=== PATIENT | male | born 1945 | race Caucasian/White ===

== ENCOUNTER 2017-12-30 14:46 | Inpatient (IN) | payer MEDICARE ==
[~2017-12-30] VITALS: Ht 185.4 cm; Wt 79.5 kg
--- NOTE | ~2017-12-30 | OP ---
PATIENT NAME: JOSE E CARROLL MEDICAL RECORD: [id number] :41 LOCATION:D.M2 D.2119 ADMISSION DATE:12/30/17 SURGEON: ANALI FIELDS MD DATE OF OPERATION: 12/30/2017 PROCEDURES: 1. PTCA and stent to the left circumflex. 2. Left heart catheterization. 3. Selective coronary angiography. 4. Left ventriculogram. 5. Vein graft angiography. 6. MIRZA angiography. INDICATIONS: Acute anterolateral myocardial infarction, coronary artery disease, and acute coronary syndrome. PROCEDURE IN DETAIL: After informed consent was obtained and after a detailed explanation of risks, benefits as well as alternative therapies, the patient elected to proceed with angiogram and angioplasty. The right femoral area was prepped and draped in normal sterile fashion. Right femoral artery was cannulated via modified Seldinger technique with placement of 6-Paraguayan sheath. All catheters exchanged through this sheath. FINDINGS: Left ventriculogram was performed in standard 30-degree HALL view, reveals global hypokinesis, ejection fraction 35% to 40%. SELECTIVE CORONARY ANGIOGRAPHY: 1. Left main is with no significant angiographic disease. 2. Left anterior descending is totally occluded in mid vessel. 3. MIRZA to the distal LAD is widely patent. Distal LAD is widely patent. 4. Left circumflex has 90+ percent stenosis at the ostium. This is not grafted. 5. Right coronary is totally occluded. 6. Vein graft to the right coronary is totally occluded. PTCA STENT OF THE LEFT CIRCUMFLEX OSTIUM: The stent used was a 3.5 x 15-mm Integrity taken to 21 atmospheres. Result was 0% residual stenosis. OVERALL IMPRESSION: Successful percutaneous transluminal angioplasty stent of the left circumflex that is nongrafted going from 90% to 95% initial stenosis to 0% residual. TRANSINT:[id number] Voice Confirmation ID: [id number] DOCUMENT ID: [id number] ANALI FIELDS MD at 1059 CC: [id number] DICTATION DATE: 12/30/17 1534 POULTRY HATCHERY MANAGER: 12/30/17 2251 DIS IN 12/31/17 [address] [place] [address]
--- NOTE | ~2017-12-30 | MORECARE ---
CASE MANAGEMENT DISCHARGE SUMMARY PATIENT: JOSE E CARROLL UNIT: [id number] ADM DATE: 12/30/17 AGE: 72 : 43 SEX: M ROOM/BED: D.1271 AUTHOR: ANH,DOC PHYSICIAN: REFERRING PHYSICIAN: ISSAC ANNA MD DATE OF SERVICE: 12/31/17 Discharge Plan Patient Name: JOSE E CARROLL Facility: [facility]:[place] : 1945 Planned Disposition: Home Anticipated Discharge Date: 12/31/17 Discharge Date: Expected LOS: 1 Initial Reviewer: [email or web address] Initial Review Date: 12/31/2017 Generated: 12/31/17 12:34 pm Comments DCP- Discharge Planning Updated by [email or web address]: Aquiles Vaughn on 12/31/17 10:[address] Patient Name: JOSE E CARROLL Admission Status: ER Accout number: [id number] Admission Date: 12-30-2017 : 1945 Admission Diagnosis: Attending: ISSAC ANNA Current LOS: 1 Anticipated DC Date: 12-31-2017 Planned Disposition: Home Primary Insurance: [employer] CHOICE PPO MCR [facility] Discharge Planning Comments: CM MET WITH PT IN ROOM TO DISCUSS DISCHARGE PLANNING AND NEEDS. PT REPORTS LIVING AT HOME INDEPENDENTLY AND ALONE; PT REPORTS HAVING ASSISTANCE OF HIS NEIGHBOR IF NEEDED. PT HAS NO MEDICAL EQUIPMENT AND NO OUTSIDE SERVICES ASSISTING IN THE HOME. CM DISCUSSED AVAILABILITY OF HOME HEALTH, REHAB SERVICES AND MEDICAL EQUIPMENT. PT DENIES DISCHARGE NEEDS, REPORTS HIS NEIGHBOR WILL PICK HIM UP FOR DISCHARGE HOME. FNP NURSE NOTIFIED. Sight Mounter: Aquiles Vaughn DCPIA - Discharge Planning Initial Assessment Updated by [email or web address]: Aquiles Vaughn on 12/31/17 11:23 am * Is the patient Alert and Oriented? Yes * How many steps to enter\exit or inside your home? * PCP DR. SANDERS * Pharmacy [facility] [address] OR [facility] MAIL ORDER * Preadmission Environment Home Alone * ADLs Independent * Equipment None * Other Equipment NO MEDICAL EQUIPMENT PROVIDER PREFERENCE * List name and contact numbers for known caregivers / representatives who currently or will assist patient after discharge: IZA RODRIGUEZ, DAUGHTER, * Verbal permission to speak to the caregivers and representatives has been obtained from the patient. N/A * Community resources currently utilized None * Please name any agencies selected above. NONE * Additional services required to return to the preadmission environment? No * Can the patient safely return to the preadmission environment? Yes * Has this patient been hospitalized within the prior 30 days at any hospital? No Last DP export: 12/31/17 10:28 a Patient Name: JOSE E CARROLL Page 24127 at 1135 All edits/amendments must be made on the electronic document DICTATION DATE: 12/31/17 113 PURCHASE ANALYST: MOUNA 12/31/17 1134 RPT#: [id number] IN DATE: STATUS: ADM IN [facility] [address] [place] [address] END OF REPORT
--- NOTE | ~2017-12-30 | MORECARE ---
CASE MANAGEMENT DISCHARGE SUMMARY PATIENT: JOSE E CARROLL UNIT: [id number] ADM DATE: 12/30/17 AGE: 72 : 43 SEX: M ROOM/BED: D.2119 AUTHOR: COURTNEY KAMARA PHYSICIAN: REFERRING PHYSICIAN: ISSAC ANNA MD DATE OF SERVICE: 12/31/17 Discharge Plan Patient Name: JOSE E CARROLL Facility: [facility]:[place] : 1945 Planned Disposition: Home Anticipated Discharge Date: 12/31/17 Discharge Date: Expected LOS: 1 Initial Reviewer: [email or web address] Initial Review Date: 12/31/2017 Generated: 12/31/17 12:28 pm DCPIA - Discharge Planning Initial Assessment Updated by [email or web address]: Aquiles Vaughn on 12/31/17 11:23 am * Is the patient Alert and Oriented? Yes * How many steps to enter\exit or inside your home? * PCP DR. SANDERS * Pharmacy [facility] OR [facility] MAIL ORDER * Preadmission Environment Home Alone * ADLs Independent * Equipment None * Other Equipment NO MEDICAL EQUIPMENT PROVIDER PREFERENCE * List name and contact numbers for known caregivers / representatives who currently or will assist patient after discharge: IZA RODRIGUEZ, DAUGHTER, * Verbal permission to speak to the caregivers and representatives has been obtained from the patient. N/A * Community resources currently utilized None * Please name any agencies selected above. NONE * Additional services required to return to the preadmission environment? No * Can the patient safely return to the preadmission environment? Yes * Has this patient been hospitalized within the prior 30 days at any hospital? No Patient Name: JOSE E CARROLL Page 15375 at 1128 All edits/amendments must be made on the electronic document DICTATION DATE: 12/31/171126 LEGAL ACTIVITY ADJUDICATOR: MOUNA 12/31/171126 RPT#: [id number] DC DATE: STATUS: ADM IN [facility] [address] [place] [address] END OF REPORT
--- NOTE | ~2017-12-30 | HEMODYNAMI ---
PATIENT:JOSE E CARROLL MEDICAL RECORD: [id number] : 41 LOCATION:JEFF ADMISSION DATE: 12/30/17 Generatedon:12/30/201715:33 Patient name: JOSE E CARROLL Patient #: [id number] SSN: : 1945 Date of study: 12/30/2017 Page: Of Hemodynamic Procedure Report Patient Data Patient Demographics Procedure consent was obtained First Name: JOSE E Gender: Male Last Name: CARLY : 1945 Patient #: [id number] Age: 72 year(s) Race: Unknown Additional ID: [id number] Contact details [address]: [address] [place] [address] State: [place] City: [place] Zip code: [address] Admission Admission Data Admission Date: 12/30/2017 Admission Time: 14:46 Procedure Procedure Types Cath Procedure Diagnostic Procedure LHC LHC w/Coronaries Sedation Charges Moderate Sedation up to 15 minutes PCI Procedure AMI/SVG/INTERMEDIATE PROJECT MANAGER PTCA or Stent AMI-BMS/DILLON Initial Peripheral Cath Diagnostic Procedure Telecommunications Equipment Installer Peripheral Procedures Xzrzl-Dofnunb-Dou-Off Procedure Description Procedure Date Procedure Date: 12/30/2017 Procedure Start Time: 15:05 Procedure End Time: 15:26 Procedure Staff Name Function Carlos Eduardo Drew MD Performing Physician Amanda Tate RT Monitor Tramaine Raymond RT Scrub Shar Odell RN Nurse Procedure Data Cath Procedure Fluoroscopy Diagnostic fluoroscopy Total fluoroscopy Time: 4.6 time: 4.6 min min Diagnostic fluoroscopy Total fluoroscopy dose: 957 dose: 957 mGy mGy Contrast Material Contrast Material Type Amount (ml) Isovue 300 164 Entry Location Entry Primary Successful Side Size Upsize Upsize Entry Closure Succes sful Closure Location (Fr) 1 (Fr) 2 (Fr) Remarks Device Remarks Femoral Right 6 Fr 6 Fr 6 Fr Exoseal artery Short Long Short Estimated blood loss: 5 ml Diagnostic catheters Device Type Used For End Catheter Placement MULTIPACK Pigtail 5 Fr LV Angiography catheter MULTIPACK Pigtail 5 Fr LV Angiography catheter MULTIPACK JL 4.0 5Fr Left Coronary catheter Angiography MULTIPACK 3DRC 5Fr Right Coronary catheter Angiography DIAGNOSTIC AR2 MOD 5 Fr Multi-vessel catheter ([id number]) Angiography Procedure Complications No complications Procedure Medications Medication Administration Route Dosage 0.9% NaCl I.V. 100 ml/hr Oxygen etCO2 Nasal cannula 2 l/min Heparin Flush Bag added to field 2 bags (1000units/500ml NS) Lidocaine 2% added to field 20 Versed I.V. 1 mg Fentanyl I.V. 50 mcg Amiodarone Loading I.V. drip 150 mg Dose (150mg/100ml D5W) Versed I.V. 1 mg Heparin Bolus I.V. 4000 units Integrilin (Bolus I.V. 7.3 ml 2mg/ml) Integrilin (Bolus wasted 2.7 ml 2mg/ml) Plavix P.O. 600 mg Hemodynamics Rest Heart Rate: 92 (bpm) Pressure Samples Time Site Value (mmHg) Purpose Heart Use Rate(bpm) 15:10 LV 21/20,17 Snapshot 70 Snapshots Pre Cath Intra NCS Post Cath Vital Signs Time Heart Resp SPO2 etCO2 NIBP (mmHg) Rhythm Pain Sedation Rate (ipm) (%) (mmHg) Status Level (bpm) 14:59:47 118 13 95 0 181/121(154) NSR 0 (11) 10(A) , No pain 15:04:03 95 21 96 0 162/119(138) NSR 0 (11) 10(A) , No pain 15:08:13 95 22 98 18.7 169/120(143) NSR 0 (11) 10(A) , No pain 15:12:24 89 16 98 29.2 158/117(130) NSR 0 (11) 10(A) , No pain 15:16:34 106 13 97 28.4 150/103(134) NSR 0 (11) 10(A) , No pain 15:20:42 80 15 98 32.9 162/107(139) NSR 0 (11) 10(A) , No pain 15:24:54 85 17 99 33.7 172/107(142) NSR 0 (11) 10(A) , No pain Medications Time Medication Route Dose Verified Delivered Reason Notes Effectiveness by by 15:09:17 0.9% NaCl I.V. 100 Shar Myles Per physician ml/hr Cass Odell RN RN 15:09:29 Oxygen etCO2 2 Shar Shar Per physician Nasal l/min Cass Odell cannula RN RN 15:09:40 Heparin Flush added 2 Shar Shar used for Bag to bags Cass Odell procedure (1000units/500ml field RN RN NS) 15:09:50 Lidocaine 2% added 20ml Shar Shar for local to vial Cass Odell anesthetic field RN RN 15:09:59 Versed I.V. 1 mg Shar Shar for sedation Cass Odell RN RN 15:10:07 Fentanyl I.V. 50 Shar Shar for sedation mcg Cass Odell RN RN 15:10:24 Amiodarone I.V. 150 Shar Shar for arrhythmia Loading Dose drip mg Cass Odell (150mg/100ml RN RN D5W) 15:13:14 Versed I.V. 1 mg Shar Shar for sedation Cass Odell RN RN 15:19:28 Heparin Bolus I.V. 4000 Shar Shar for units Cass Odell anticoagulation RN RN 15:19:43 Integrilin I.V. 7.3 Shar Shar for (Bolus 2mg/ml) ml Cass Odell antiplatelet RN RN therapy 15:19:54 Integrilin wasted 2.7 Shar Shar to sharp's (Bolus 2mg/ml) ml Cass Odell RN RN 15:24:45 Plavix P.O. 600 Shar Shar for mg Cass Odell antiplatelet RN RN therapy Procedure Log Time Note 14:52:43 Tramaine Raymond RT(R) sent for patient. Start room use. 14:52:44 Time tracking: Regular hours (M-F 7:00 - 5:00) 14:52:47 Plan of Care:Hemodynamics will remain stable., Cardiac rhythm will remain stable., Comfort level will be maintained., Respiratory function will remain adequate., Patient/ family verbilizes understanding of procedure., Procedure tolerated without complication., Recovers from procedure without complications.. 14:55:20 Patient received from ED to CCL 2 Alert and oriented. Tansferred to table in Supine position. 14:55:21 Warm blankets applied, and todd hugger turned on for patient comfort. 14:55:21 Correct patient and procedure confirmed by team. 14:55:23 Signed procedure consent form obtained from patient. 14:55:23 ECG and BP/O2 sat monitors applied to patient. 14:58:24 Vital chart was started 15:00:00 Baseline sample Acquired. 15:00:00 Full Disclosure recording started 15:00:04 H&P Date Dictated: 12/30/2017 ER History on chart.. 15:00:05 Pre-procedure instructions explained to patient. 15:00:05 Pre-op teaching completed and patient verbalized understanding. 15:00:08 Family unavailable. 15:00:10 Patient NPO since Breakfast. 15:00:11 Is the patient allergic to Iodine/contrast media? No. 15:00:12 Was the patient premedicated? No 15:00:14 Is patient on blood thinner?Yes 15:00:17 ACC The patient was administered the following blood thiners within the last 24 hours: ACCPlavix 15:00:19 Patient diabetic? No. 15:00:21 Previous problem with sedation/anesthesia? No ? 15:00:23 Snore? Yes 15:00:24 Sleep apnea? No 15:00:25 Deviated septum? No 15:00:25 Opens mouth fully? Yes 15:00:26 Sticks out tongue? Yes 15:00:27 Airway obstruction? No ? 15:00:29 Dentures? No ? 15:00:33 Pre procedure: right dorsailis pedis pulse 2+ Normal; easily identifiable; not easily obliterated 15:00:34 Pre procedure: left dorsailis pedis pulse 2+ Normal; easily identifiable; not easily obliterated 15:00:36 Patient pain scale 0/10 ?. 15:00:42 IV patent on arrival in right forearm, left forearm with 0.9% NaCl at O. 15:00:45 Lab results completed and on chart. 15:00:48 Right groin area was prepped with chlora-prep and draped in sterile fashion 15:00:49 Alarms reviewed by Catrina Jefferson. 15:00:49 Sharps counted by scrub and verified by [email or web address]. 15:00:51 Physician arrived 15:00:51 --------ALL STOP TIME OUT------ 15:00:52 Final Timeout: patient, procedure, and site verified with staff and physician. All members of the team are in agreement. 15:00:53 Right groin site verified by team. 15:01:00 Physical assessment completed. ASA score P 3 - A patient with severe systemic disease as per Carlos Eduardo Drew MD. 15:01:04 Sedation plan: IV Moderate Sedation Medication:Versed, Fentanyl 15:01:07 Use device set Femoral Dx 15:01:08 ACIST Syringe (52588) opened to sterile field. 15:01:09 Bag Decanter (2002S) opened to sterile field. 15:01:09 Medline Cath Pack ([id number]) opened to sterile field. 15:01:09 DIAGNOSTIC WIRE .035 260cm J wire (087721) opened to sterile field. 15:01:16 ACIST Hand Control (40880) opened to sterile field. 15:01:17 ACIST Manifold (53221) opened to sterile field. 15:01:17 DIAGNOSTIC Multipack 5Fr catheter set ([id number]) opened to sterile field. 15:01:18 Tegaderm 4 x 4 (1626W) opened to sterile field. 15:05:42 Procedure started. 15:05:45 Local anesthetic to right femoral artery with Lidocaine 2% by Carlos Eduardo Drew MD.INITIAL ACCESS ONLY 15:05:54 A 6 Fr Short sheath was inserted into the Right Femoral artery 15:06:40 SHEATH 6FR [place] (KKL458) opened to sterile field. 15:06:41 CHOICE PT Extra Support 182cm wire ([id number]) opened to sterile field. 15:06:43 INFLATOR Merit BasixCompak (TE5206) opened to sterile field. 15:08:48 A MULTIPACK Pigtail 5 Fr catheter was advanced over the wire and used for LV Angiography. 15:08:56 Abdominal angiogram w/ runoff was performed. 15:09:01 Catheter removed. 15:09:14 SHEATH 6FR ARROW 45cm (CL-60456) opened to sterile field. 15:09:17 0.9% NaCl 100 ml/hr I.V. was administered by Shar Odell RN; Per physician; 15:09:24 Sheath upsized to a 6 Fr Long. 15:09:29 Oxygen 2 l/min etCO2 Nasal cannula was administered by Shar Lorigan RN; Per physician; 15:09:40 Heparin Flush Bag (1000units/500ml NS) 2 bags added to field was administered by Shar Odell RN; used for procedure; 15::50 Lidocaine 2% 20ml vial added to field was administered by Shar Odell RN; for local anesthetic; 15:09:59 Versed 1 mg I.V. was administered by Shar Odell RN; for sedation; 15:10:07 Fentanyl 50 mcg I.V. was administered by Shar Odell RN; for sedation; 15:10:24 Amiodarone Loading Dose (150mg/100ml D5W) 150 mg I.V. drip was administered by Shar Odell RN; for arrhythmia; 15:10:41 A MULTIPACK Pigtail 5 Fr catheter was advanced over the wire and used for LV Angiography. 15:11:02 LV hemodynamics recorded. 15:11:03 LV gram done using HALL 15:11:06 Injector settings: Ml/sec: 5, Volume: 15, 15:11:11 EF : 35 % 15:11:17 Catheter removed. 15:11:21 A MULTIPACK JL 4.0 5Fr catheter was advanced over the wire and used for Left Coronary Angiography. 15:12:00 LCA angiography performed. 15:12:03 Injector settings: Ml/sec: 3, Volume: 6, 15:13:14 Versed 1 mg I.V. was administered by Shar Odell RN; for sedation; 15:13:54 Catheter removed. 15:13:58 A MULTIPACK 3DRC 5Fr catheter was advanced over the wire and used for Right Coronary Angiography. 15:14:42 MIRZA angiography performed. 15:14:44 RCA angiography performed. 15:14:51 Injector settings: Ml/sec: 3, Volume: 6, 15:14:52 Catheter removed. 15:15:18 A DIAGNOSTIC AR2 MOD 5 Fr catheter ([id number]) was advanced over the wire and used for Multi-vessel Angiography. 15:16:00 SVG to RCA occluded. 15:16:31 Catheter removed. 15:16:33 Proceeding to intervention. 15:16:55 GUIDE 6FR EBU 4.5 catheter ([id number]) opened to sterile field. 15:17:20 6 Fr EBU 4.5 guide catheter was inserted over the wire 15:17:24 CHOICE PT wire advanced. 15:18:09 Wire advanced across lesion. 15:19:28 Heparin Bolus 4000 units I.V. was administered by Shar Odell RN; for anticoagulation; 15::43 Integrilin (Bolus 2mg/ml) 7.3 ml I.V. was administered by Shar Odell RN; for antiplatelet therapy; 15:19:54 Integrilin (Bolus 2mg/ml) 2.7 ml wasted was administered by Shar Odell RN; to sharp's; 15:20:34 Inflate balloon Inflation number: 1 A INTEGRITY RX 3.5 x 15 stent ([id number]) was prepped and advanced across the Prox CX, then inflated to 19 MARTY for 0:10 (min:sec). 15:21:18 Stent catheter was removed intact over wire. 15:21:18 Wire removed. 15:21:19 Guide catheter removed. 15:21:28 Sheath upsized to a 6 Fr Short. 15:21:36 EXOSEAL 6Fr (EX600) opened to sterile field. 15:21:45 Sheath removed intact; hemostasis achieved with Exoseal to the Right Femoral artery. 15:21:46 Procedure ended.(Physican Out) 15:24:43 Fluoroscopy time 04.60 minutes. 15:24:45 Plavix 600 mg P.O. was administered by Shar Odell RN; for antiplatelet therapy; 15:24:47 Fluoroscopy dose: 957 mGy 15:24:47 Flurop Dose total: 957 15:24:50 Contrast amount:Isovue 300 164ml. 15:25:13 Sharpmandeep counted by scrub and verified by R.N. 15:25:19 Insertion/operative site no bleeding no hematoma. 15:25:21 Post-op/insertion site Right Femoral artery dressed using a 4 x 4 and Tegaderm. 15:25:24 Post right femoral artery:stable 15:25:25 Post Procedure Pulses reassessed and unchanged 15:25:28 Post procedure rhythm: unchanged. 15:25:30 Estimated blood loss: 5 ml 15:25:32 Post procedure instruction explained to patient.Patient verbalizes understanding. 15:25:33 Patient needs reinforcement of post procedure teaching. 15:26:07 Procedure type changed to Cath procedure, Diagnostic procedure, LHC, LHC w/Coronaries, Sedation Charges, Moderate Sedation up to 15 minutes, PCI procedure, AMI/SVG/INTERMEDIATE PROJECT MANAGER PTCA or Stent, AMI-BMS/DILLON Initial, Peripheral Cath Diagnostic Procedure, Telecommunications Equipment Installer Peripheral Procedures, Eizao-Plcifgd-Hkn-Off 15:26:18 Procedure and supply charges have been captured, reviewed, submitted and are correct. 15:26:22 Procedure Complication : No complications 15:26:24 Vital chart was stopped 15::24 See physician's report for complete and final results. 15::27 Report given to [facility]. 15::30 Patient transfered to [facility] with Stretcher. 15::37 Procedure ended. 15::37 Full Disclosure recording stopped 15:26:53 ACC-PCI Only Patient was given prescriptions, or instructed by Carlos Eduardo Drew MD to start/continue the following medications upon discharge: Plavix 15:26:55 End room use (Document Last) Intervention Summary Intervention Notes Time ActionType Lesion and Equipment Action# Pressure Duration Attributes Used 15:20:34 Inflate Prox CX INTEGRITY RX 1 19 00:10 balloon 3.5 x 15 stent ([id number]) Device Usage Item Name Manufacture Quantity Catalog Number Hospital Part Current Mini mal Lot# / Charge Number Stock Stock Serial# Code ACIST Acist 1 46077 275822 303886 001397 20 Syringe Medical (78784) Systems Inc Bag Decanter Microtek 1 2001S 049691 49888 462342 5 () Medical Inc. Medline Cath Medline 1 [id number] 274059 60752 152000 5 Pack ([id number]) DIAGNOSTIC St Ty 1 802455 657891 197127 128987 30 WIRE .035 260cm J wire (787773) ACIST Hand Acist 1 50533 386293 838576 167605 5 Control Medical (02453) Systems Inc ACIST Acist 1 36007 106982 516812 651835 5 Manifold Medical (36880) Systems Inc DIAGNOSTIC Cardinal 1 GM3988 190771 56179 142031 30 [employer] Health 5Fr catheter set (MD1068) Tegaderm 4 x 3M 1 1626W 976023 694579 144750 5 4 (1626W) SHEATH 6FR Terumo 1 BIW769 411460 954820 999708 40 [place] (SGC422) CHOICE PT [place] 1 [id number] 259263 082836 098601 5 Extra Scientific Support 182cm wire ([id number]) INFLATOR Merit 1 AW9058 715047 883808 816491 15 [facility] Medical BasixCompak (DI0590) MULTIPACK Cardinal 1 274694 5 Pigtail 5 Fr Health catheter SHEATH 6FR Teleflex 1 CL-31500 950432 420716 310974 5 ARROW 45cm (CL-31633) MULTIPACK JL Cardinal 1 235319 5 4.0 5Fr Health catheter MULTIPACK Cardinal 1 604614 5 3DRC 5Fr Health catheter DIAGNOSTIC Cardinal 1 [id number] 422062 287006 537627 20 AR2 MOD 5 Fr Health catheter (680444O) GUIDE 6FR Medtronic 1 [id number] 966729 53995 796547 0 EBU 4.5 catheter ([id number]) INTEGRITY RX Medtronic 1 [id number] 220108 706749 604991 5 [id number] 3.5 x 15 stent ([id number]) EXOSEAL 6Fr Cardinal 1 EX600 336469 996614 827452 10 (EX600) Health Signature Audit [place] Stage Time Signature Unsigned Intra-Procedure 12/30/2017 Amanda Tate 3:33:34 PM RT(R) Signatures Monitor : Amanda Tate RT Signature : Date : Time : [id number] [place] [address]
--- NOTE | ~2017-12-30 | OP ---
PATIENT NAME: JOSE E CARROLL MEDICAL RECORD: [id number] :41 LOCATION:D.M2 D.2119 ADMISSION DATE:12/30/17 SURGEON: ANALI FIELDS MD DATE OF OPERATION: 12/30/2017 PROCEDURES: 1. Aortofemoral runoff. 2. Abdominal aortography. INDICATIONS: Difficulty obtaining access for coronary intervention, peripheral vascular disease. PROCEDURE IN DETAIL: After informed consent was obtained and after a detailed description of the risks, benefits as well as alternative therapies, the patient elected to proceed with angiogram and aortofemoral runoff. The catheter was advanced for abdominal aortography, it was pulled down for aortofemoral runoff. OVERALL FINDINGS: Abdominal aorta reveals very tortuous calcified abdominal aorta but no dissection, aneurysm formation. No flow-limiting stenosis. RIGHT LEG: A. Iliac: The common internal and external iliacs are heavily calcified, moderately diffusely diseased, very tortuous. B. Femoral System: Deep femoral is widely patent. Superficial femoral has moderately to severely diffusely diseased throughout its entire course. C. Popliteal And Infrapopliteal Vessels: The popliteal is patent. Infrapopliteal vessels are severely diffusely diseased, but there is somewhat of 2-vessel runoff through the peroneal and posterior tibial. LEFT LEG: A. Iliac: The common internal and external iliacs are heavily calcified, moderately diffusely diseased, very tortuous. B. Femoral System: Deep femoral is widely patent. Superficial femoral has moderately to severely diffusely diseased throughout its entire course. C. Popliteal And Infrapopliteal Vessels: The popliteal is patent. Infrapopliteal vessels are severely diffusely diseased, but there is somewhat of 2-vessel runoff through the peroneal and posterior tibial. He kept a stent except for the right leg but to the foot. OVERALL IMPRESSION: Extreme tortuosity of the iliacs, this is the difficulty obtaining access for acute coronary intervention. However, no flow-limiting stenosis is present. Severe diffuse disease of the SFA and infrapopliteal vessels that are not amenable to transcatheter revascularization. TRANSINT:[id number] Voice Confirmation ID: [id number] DOCUMENT ID: [id number] OPERATIVE REPORT [id number] CARLYEMILYJOSE EANALI GONZALEZ MD at 1059 CC: [id number] DICTATION DATE: 12/30/17 1534 LOAD DROPPER: 12/30/17 2254 DIS IN 12/31/17 [facility] [address] [place] [address]
--- NOTE | ~2017-12-30 | CN ---
PATIENT NAME:JOSE E CARROLL MEDICAL RECORD: [id number] : 41 LOCATION:D.M2 D.2119 ADMIT DATE: 12/30/17 ACCOUNT: [id number] CONSULTING PHYSICIAN: ANALI FIELDS MD REFERRING PHYSICIAN: ISSAC ANNA MD DATE OF CONSULTATION: 12/30/2017 DIAGNOSES: 1. Acute anterolateral myocardial infarction. 2. New-onset atrial fibrillation. 3. Coronary artery disease. 4. Previous coronary artery bypass graft surgery. 5. Hypertension. HISTORY: This is a gentleman with past history of coronary artery disease and bypass surgery approximately 10 years ago, who presents with acute onset of chest pain. His EKG is compatible with an acute anterolateral myocardial infarction. While en route, he went into wide complex tachycardia, was given amiodarone. He is now in a narrow complex atrial fibrillation with ventricular response of approximately 100. He is pain free at this time. His STs are better. PHYSICAL EXAMINATION: GENERAL APPEARANCE: Well-nourished, well-developed, appears stated age. Level of distress, comfortable. PSYCHIATRIC: Mental status, alert, normal affect. Orientation, oriented to time, place and person. EYES: Lids and conjunctiva, noninjected. No discharge, no pallor. ENT: Lips, teeth, gums, normal dentition. Oropharynx, no cyanosis, no pallor. NECK: Carotid arteries, bilateral normal upstroke, no bruits, no thrills. JUGULAR VEINS: No jugular venous pressure or distention. CERVICAL LYMPH NODES: Nontender, nonenlarged. THYROID: Not enlarged. Nontender. No nodules. LUNGS: Respiratory effort, unlabored. CHEST: Normal curvature. No thoracic deformity. No chest wall tenderness. Percussion, resonant. Auscultation, clear. No wheezes, no rales, no rhonchi. CARDIOVASCULAR: Precordial exam, nondisplaced. No heaves or pericardial thrills. Rate and rhythm, regular. Heart sounds, normal S1, normal S2. No S3, no gallop, no rub. Systolic murmur, not heard. Diastolic murmur, not heard. EXTREMITIES: No cyanosis, no edema. Peripheral pulses, full and equal in all extremities, except as noted. No bruits appreciated. ABDOMEN: Soft, nondistended. Normal aorta. No bruit. Nontender. No masses. Liver, nontender, no hepatomegaly. Spleen, nontender, no splenomegaly. MUSCULOSKELETAL: No joint tenderness. No joint swelling. No erythema. NEUROLOGICAL: Normal gait, normal strength, normal tone. SKIN: Warm and dry. OVERALL IMPRESSION: Acute myocardial infarction with life-threatening rhythm disturbances. We will proceed with emergent coronary angiography. Further care depends upon findings of the angiography. TRANSINT:[id number] Voice Confirmation ID: [id number] DOCUMENT ID: [id number] CONSULT REPORT [id number] JOSE E CARROLL, ANALI PAREDES at 1059 CC: [id number] DICTATION DATE: 12/30/17 1526 PRE PRESS MANAGER: 12/30/17 1835 DIS IN 12/31/17 [id number] [place] [address]
[~2017-12-30 14:46] MED LIST: ALTOPREV40 MG PO; BAYER CHEWABLE81 MG PO; MOBIC7.5 MG PO; PAXIL20 MG PO; PLAVIX75 MG PO; SYNTHROID100 MCG PO; VASOTEC20 MG PO; XANAX1 MG PO
[2017-12-30 15:42] LABS: BASOPHILS 0.2 % (0-2); EOSINOPHILS 0.7 % (0-7); HEMATOCRIT 36.9 % (42.0-54.0); HEMOGLOBIN 13.1 g/dL (13.5-17.5); IMMATURE GRANULOCYTES 0.3 % (0-5); LYMPHOCYTES 13.5 % (15-50); MCHC 35.5 g/dL (31.0-37.0); MCV 90.2 fL (80.0-100.0); MEAN PLATELET VOLUME 10.8 fL (7.4-10.4); MONOCYTES 9.4 % (2-11); NEUTROPHILS 75.9 % (40-80); RBC 4.09 10x6/uL (4.20-6.10); WBC 8.8 10x3/uL (4.8-10.8)
[2017-12-30 15:54] LABS: PLATELET COUNT 207 10x3/uL (130-400)
[2017-12-30 16:05] LABS: ALBUMIN 3.3 g/dL (3.4-5.0); ALKALINE PHOSPHATASE 79 U/L (46-116); ALT (SGPT) 55 U/L (10-68); BILIRUBIN - TOTAL 0.75 mg/dL (0.2-1.3); CALC OSMOLALITY 266 mosm/kg (275-300); CALCIUM 8.1 mg/dL (8.5-10.1); CARBON DIOXIDE 23.3 mmol/L (21.0-32.0); CHLORIDE - SERUM 99 mmol/L (98-107); CREATININE - SERUM 0.9 mg/dL (0.6-1.3); GLUCOSE 109 mg/dL (74-106); PROTEIN - SERUM 7.8 g/dL (6.4-8.2); SODIUM 133 mmol/L (136-145); UREA NITROGEN 13 mg/dL (7-18); eGFR NON AFRICAN AMERICAN 88 mL/min (90-120)
[2017-12-30] MEDS ORDERED: ATROVENT 0.02%2.5 ML UPD (16:09)
[2017-12-30] MEDS ORDERED: ZANTAC300 MG PO (16:10)
[2017-12-30] MEDS ORDERED: LEVOCETIRIZINE 5 MG PO (16:12)
[2017-12-30 16:46] VITALS: BP 160/100; BMI 23.1
[2017-12-30 21:01] VITALS: BP 172/98
[2017-12-31] VITALS: BP 146/68
[2017-12-31 06:11] VITALS: BP 160/77
[2017-12-31 08:30] VITALS: BP 165/91
[2017-12-31 11:37] VITALS: BP 137/67
[2017-12-31 12:31] VITALS: Ht 185.4 cm; Wt 79.5 kg
[2017-12-31] MEDS ORDERED: PLAVIX75 MG PO (12:44)
[2017-12-31] MEDS ORDERED: PRAVACHOL40 MG PO (12:44)
[2017-12-31] MEDS ORDERED: BETAPACE 80 MG80 MG PO (12:45)
== END 2017-12-31 15:00 | disposition home or self-care (01) | DRG 249 ==
LOC: D.CATH 14:46 → D.ER 14:46 → EDSTATUS 15:07 → D.M2 15:45 → D.CATH 16:00 → D.M2 16:01
PROVIDERS: Internal Medicine Interventional Cardiology; Internal Medicine Nephrology
PROC: B2151ZZ Fluoroscopy of Left Heart using Low Osmolar Contrast (ICD-10-PCS; 2017-12-30)
PROC: B2181ZZ Fluoroscopy of Left Internal Mammary Bypass Graft using Low Osmolar Contrast (ICD-10-PCS; 2017-12-30)
PROC: B4101ZZ Fluoroscopy of Abdominal Aorta using Low Osmolar Contrast (ICD-10-PCS; 2017-12-30)
PROC: 02703DZ Dilation of Coronary Artery, One Artery with Intraluminal Device, Percutaneous Approach (ICD-10-PCS; principal; 2017-12-30 14:55)
PROC: 4A023N7 Measurement of Cardiac Sampling and Pressure, Left Heart, Percutaneous Approach (ICD-10-PCS; 2017-12-30 14:55)
PROC: B2111ZZ Fluoroscopy of Multiple Coronary Arteries using Low Osmolar Contrast (ICD-10-PCS; 2017-12-30 14:55)
DX: I21.09 ST elevation (STEMI) myocardial infarction involving other coronary artery of anterior wall (principal); E87.1 Hypo-osmolality and hyponatremia; I25.110 Atherosclerotic heart disease of native coronary artery with unstable angina pectoris; I48.91 Unspecified atrial fibrillation; I10 Essential (primary) hypertension; E78.5 Hyperlipidemia, unspecified; E03.9 Hypothyroidism, unspecified; D64.9 Anemia, unspecified; E87.6 Hypokalemia; I77.89 Other specified disorders of arteries and arterioles

== ENCOUNTER 2018-01-07 17:26 | Inpatient (IN) | payer MEDICARE ==
[~2018-01-07] VITALS: Ht 185.4 cm; Wt 79.5 kg
--- NOTE | ~2018-01-07 | HEMODYNAMI ---
PATIENT:JOSE E CARROLL MEDICAL RECORD: [id number] : 41 LOCATION:JEFF ADMISSION DATE: 01/07/18 Generatedon:01/07/201818:52 Patient name: JOSE E CARROLL Patient #: [id number] SSN: : 1945 Date of study: 01/07/2018 Page: Of Hemodynamic Procedure Report Patient Data Patient Demographics Procedure consent was obtained First Name: JOSE E Gender: Male Last Name: CARLY : 1945 Patient #: [id number] Age: 72 year(s) Race: Additional ID: [id number] Contact details [address]: [address] [place] [address] State: [place] City: [place] Zip code: [address] Admission Admission Data Admission Date: 01/07/2018 Admission Time: 17:26 Procedure Procedure Types Cath Procedure Diagnostic Procedure LHC LHC w/Coronaries w/Grafts Sedation Charges Moderate Sedation up to 15 minutes Procedure Description Procedure Date Procedure Date: 01/07/2018 Procedure Start Time: 18:20 Procedure End Time: 18:49 Procedure Staff Name Function Yan Amos MD Performing Physician Amanda Tate RT Monitor Radha Webber RT Scrub Kyle Estrada RN Nurse Procedure Data Cath Procedure Fluoroscopy Diagnostic fluoroscopy Total fluoroscopy Time: 1.4 time: 1.4 min min Diagnostic fluoroscopy Total fluoroscopy dose: 308 dose: 308 mGy mGy Contrast Material Contrast Material Type Amount (ml) Isovue 300 66 Entry Location Entry Primary Successful Side Size Upsize Upsize Entry Closure Succes sful Closure Location (Fr) 1 (Fr) 2 (Fr) Remarks Device Remarks Femoral Left 6 Fr 6 Fr Exoseal artery Long Short Estimated blood loss: 5 ml Diagnostic catheters Device Type Used For End Catheter Placement MULTIPACK JL 4.0 5Fr Left Coronary catheter Angiography MULTIPACK 3DRC 5Fr Right Coronary catheter Angiography MULTIPACK Pigtail 5 Fr LV Angiography catheter Procedure Complications No complications Procedure Medications Medication Administration Route Dosage Oxygen etCO2 Nasal cannula 2 l/min Lidocaine 2% added to field 20 Heparin Flush Bag added to field 2 bags (1000units/500ml NS) 0.9% NaCl I.V. 100 ml/hr Versed I.V. 1 mg Fentanyl I.V. 50 mcg Versed I.V. 1 mg Fentanyl I.V. 50 mcg Integrilin (Bolus I.V. 7.3 ml 2mg/ml) Hemodynamics Rest Heart Rate: 57 (bpm) Pressure Samples Time Site Value (mmHg) Purpose Heart Use Rate(bpm) 18:29 LV 205/1,29 Snapshot 62 Gradients Valve Time Site Site Mean SEP/DFP Peak To Heart Use 1 2 (mmHg) (sec/min) Peak Rate (mmHg) (bpm) Aortic 18:30 LV AO 62 Snapshots Pre Cath Intra NCS Post Cath Vital Signs Time Heart Resp SPO2 etCO2 NIBP (mmHg) Rhythm Pain Status Sedation Rate (ipm) (%) (mmHg) Level (bpm) 18:11:31 53 18 100 0 190/69(171) NSR 2 (11) , 10(A) Uncomfortable 18:16:01 58 18 100 193/94(177) NSR 2 (11) , 10(A) Uncomfortable 18:20:28 63 17 99 176/89(146) NSR 0 (11) , No 10(A) pain 18:24:52 54 16 99 166/82(149) NSR 0 (11) , No 10(A) pain 18:29:12 65 15 100 185/97(155) NSR 0 (11) , No 10(A) pain 18:33:41 64 14 100 176/94(154) NSR 0 (11) , No 10(A) pain 18:41:36 59 16 100 181/92(145) NSR 0 (11) , No 10(A) pain Medications Time Medication Route Dose Verified Delivered Reason Notes Effectiveness by by 18:16:47 Oxygen etCO2 2 Yan Wright used for Nasal l/min St Sanjeev Estrada auto finance sales rep cannula 18:16:56 Lidocaine 2% added 20ml Yan Heredia for local to vial [facility] anesthetic field MD PAREDES 18:17:04 Heparin Flush added 2 Yan Heredia used for Bag to bags [facility] procedure (1000units/500ml field MD PAREDES NS) 18:17:44 0.9% NaCl I.V. 100 Yan Buffie Per physician ml/hr St Sanjeev Estrada RN, MD 18:17:55 Versed I.V. 1 mg Yan Wright for sedation St Sanjeev Estrada RN, MD 18:18:02 Fentanyl I.V. 50 Yan Wright for sedation mcg St Sanjeev Estrada RN, MD 18:21:18 Versed I.V. 1 mg Yan Wright for sedation St Sanjeev Estrada RN, MD 18:21:22 Fentanyl I.V. 50 Yan Wright for sedation mcg St Sanjeev Estrada RN, MD 18:27:12 Integrilin I.V. 7.3 Yan Wright for waste d (Bolus 2mg/ml) ml St Sanjeev Estrada RN anticoagulation 2.7 ml MD of vial Procedure Log Time Note 18:01:49 Informed consent obtained and on chart 18:02:58 Radha Counts RT(R) sent for patient. Start room use. 18:02:59 Time tracking: Regular hours (M-F 7:00 - 5:00) 18:03:05 Plan of Care:Hemodynamics will remain stable., Cardiac rhythm will remain stable., Comfort level will be maintained., Respiratory function will remain adequate., Patient/ family verbilizes understanding of procedure., Procedure tolerated without complication., Recovers from procedure without complications.. 18:10:03 Patient received from ED to CCL 1 Alert and oriented. Tansferred to table in Supine position. 18:10:04 Warm blankets applied, and todd hugger turned on for patient comfort. 18:10:04 Correct patient and procedure confirmed by team. 18:10:05 ECG and BP/O2 sat monitors applied to patient. 18:10:05 Vital chart was started 18:14:55 Baseline sample Acquired. 18:15:03 Full Disclosure recording started 18:15:09 H&P Date Dictated: 01/07/2018 New H&P dictated by physician.. 18:15:11 Pre-procedure instructions explained to patient. 18:15:11 Pre-op teaching completed and patient verbalized understanding. 18:15:12 Family in waiting room. 18:15:14 Patient NPO since Midnight. 18:15:16 Is the patient allergic to Iodine/contrast media? No. 18:15:17 Was the patient premedicated? No 18:15:33 Is patient on blood thinner?Yes 18:15:36 ACC The patient was administered the following blood thiners within the last 24 hours: ACCPlavix, ACCHeparin 18:15:39 Patient diabetic? No. 18:15:41 Previous problem with sedation/anesthesia? No ? 18:15:43 Snore? Yes 18:15:44 Sleep apnea? No 18:15:45 Deviated septum? No 18:15:45 Opens mouth fully? Yes 18:15:46 Sticks out tongue? Yes 18:15:48 Airway obstruction? No ? 18:15:50 Dentures? No ? 18:15:54 Pre procedure: right dorsailis pedis pulse 1+ Palpable, but thready & weak; easily obliterated 18:15:56 Pre procedure: left dorsailis pedis pulse 1+ Palpable, but thready & weak; easily obliterated 18:15:58 Patient pain scale 0/10 ?. 18:16:04 IV patent on arrival in left forearm with 0.9% NaCl at [facility]. 18:16:06 Lab results completed and on chart. 18:16:12 Left groin area was prepped with chlora-prep and draped in sterile fashion 18:16:13 Alarms reviewed by R. N. 18:16:14 Sharps counted by scrub and verified by R.N. 18:16:16 Physician arrived 18:16:17 --------ALL STOP TIME OUT------ 18:16:17 Final Timeout: patient, procedure, and site verified with staff and physician. All members of the team are in agreement. 18:16:19 Left groin site verified by team. 18:16:25 Physical assessment completed. ASA score P 2 - A patient with mild systemic disease as per Yan Amos MD. 18:16:29 Sedation plan: IV Moderate Sedation Medication:Versed, Fentanyl 18:16:47 Oxygen 2 l/min etCO2 Nasal cannula was administered by Kyle Estrada RN; used for procedure; 18:16:49 Use device set Femoral Dx 18:16:51 ACIST Syringe (97506) opened to sterile field. 18:16:51 Bag Decanter (2001S) opened to sterile field. 18:16:52 Medline Cath Pack ([id number]) opened to sterile field. 18:16:52 DIAGNOSTIC WIRE .035 260cm J wire (553955) opened to sterile field. 18:16:53 ACIST Hand Control (41413) opened to sterile field. 18:16:54 ACIST Manifold (36298) opened to sterile field. 18:16:54 DIAGNOSTIC Multipack 5Fr catheter set (HP5073) opened to sterile field. 18:16:55 Tegaderm 4 x 4 (1626W) opened to sterile field. 18:16:56 Lidocaine 2% 20ml vial added to field was administered by Yan Amos MD; for local anesthetic; 18:17:04 Heparin Flush Bag (1000units/500ml NS) 2 bags added to field was administered by Yan Amos MD; used for procedure; 18:17:18 SHEATH 6FR Destination (RSR01) opened to sterile field. 18:17:19 CHOICE PT Extra Support 182cm wire ([id number]) opened to sterile field. 18:17:19 INFLATOR Merit BasixCompak (IY6003) opened to sterile field. 18:17:20 SHEATH 6FR Thompson (DPQ186) opened to sterile field. 18:17:44 0.9% NaCl 100 ml/hr I.V. was administered by Kyle Estrada RN; Per physician; 18:17:55 Versed 1 mg I.V. was administered by Kyle Estrada RN; for sedation; 18:18:02 Fentanyl 50 mcg I.V. was administered by Kyle Estrada RN; for sedation; 18:20:18 Procedure started. 18:20:23 Local anesthetic to left femerol artery with Lidocaine 2% by Yan Amos MD.INITIAL ACCESS ONLY 18:20:35 A 6 Fr Long sheath was inserted into the Left Femoral artery 18:21:18 Versed 1 mg I.V. was administered by Kyle Estrada RN; for sedation; 18:21:22 Fentanyl 50 mcg I.V. was administered by Kyle Estrada RN; for sedation; 18:21:47 Zero performed for pressure channel P1 18:23:48 A MULTIPACK JL 4.0 5Fr catheter was advanced over the wire and used for Left Coronary Angiography. 18:24:22 LCA angiography performed. 18:24:26 Injector settings: Ml/sec: 3, Volume: 6, 18:26:34 Catheter removed. 18:26:40 A MULTIPACK 3DRC 5Fr catheter was advanced over the wire and used for Right Coronary Angiography. 18:26:47 RCA angiography performed. 18::50 Injector settings: Ml/sec: 3, Volume: 6, 18:27:12 Integrilin (Bolus 2mg/ml) 7.3 ml I.V. was administered by Kyle Estrada RN; for anticoagulation; wasted 2.7 ml of vial 18::49 MIRZA angiography performed. 18::42 Injector settings: Ml/sec: 3, Volume: 6, 18:29:18 Catheter removed. 18:29:21 A MULTIPACK Pigtail 5 Fr catheter was advanced over the wire and used for LV Angiography. 18:29:48 LV hemodynamics recorded. 18::49 LV gram done using HALL 18::52 Injector settings: Ml/sec: 5, Volume: 15, 18:30:19 EF : 25 % 18:30:51 Catheter removed. 18:32:42 Sheath upsized to a 6 Fr Short. 18:32:53 EXOSEAL 6Fr (EX600) opened to sterile field. 18:33:13 Sheath removed intact; hemostasis achieved with Exoseal to the Left Femoral artery. 18:33:15 Procedure ended.(Physican Out) 18:34:06 Fluoroscopy time 01.40 minutes. 18:34:10 Fluoroscopy dose: 308 mGy 18:34:10 Flurop Dose total: 308 18:34:30 Contrast amount:Isovue 300 66ml. 18:35:12 Sharps counted by scrub and verified by R.N. 18:35:16 Insertion/operative site no bleeding no hematoma. 18:35:18 Post-op/insertion site Left Femoral artery dressed using a 4 x 4 and Tegaderm. 18:35:26 Post Procedure Pulses reassessed and unchanged 18:35:29 Post procedure rhythm: unchanged. 18:35:32 Estimated blood loss: 5 ml 18:35:34 Post procedure instruction explained to patient.Patient verbalizes understanding. 18:35:34 Patient needs reinforcement of post procedure teaching. 18:36:00 Procedure type changed to Cath procedure, Diagnostic procedure, LHC, LHC w/Coronaries w/Grafts, Sedation Charges, Moderate Sedation up to 15 minutes 18:36:05 Procedure and supply charges have been captured, reviewed, submitted and are correct. 18:36:10 Procedure Complication : No complications 18:36:12 Vital chart was stopped 18:36:12 See physician's report for complete and final results. 18:36:16 Report given to PCU. 18:36:19 Patient transfered to PCU with Stretcher. 18:49:01 Femstop placed over the left femerol artery at 200 mmHg. Hemostasis achieved. 18:49:04 Procedure ended. 18:49:04 Full Disclosure recording stopped 18:49:12 ACC-PCI Only Patient was given prescriptions, or instructed by Yan Amos MD to start/continue the following medications upon discharge: Plavix 18:49:13 End room use (Document Last) Device Usage Item Name Manufacture Quantity Catalog Number Hospital Part Current Minim al Lot# / Charge Number Stock Stock Serial# Code ACIST Acist 1 97975 720503 020472 729671 20 Syringe Medical (75780) Systems Inc Bag Microtek 1 2001S 976281 32035 182860 5 Decanter Medical Inc. () Medline Medline 1 [id number] 806788 29688 393475 5 Cath Pack ([id number]) DIAGNOSTIC St Ty 1 719974 955913 227129 130578 30 WIRE .035 260cm J wire (831037) ACIST Hand Acist 1 56889 104963 543940 040296 5 Control Medical (66729) Systems Inc ACIST Acist 1 04963 910491 047930 382307 5 Manifold Medical (55764) Systems Inc DIAGNOSTIC Cardinal 1 EC4418 549237 92656 315261 30 Multipack Health 5Fr catheter set (RW2152) Tegaderm 4 3M 1 1626W 298321 467208 031992 5 x 4 (1626W) SHEATH 6FR Terumo 1 RSR01 493054 72357 955621 5 Destination (RSR01) CHOICE PT Howell 1 [id number] 020782 364225 273271 5 Extra Scientific Support 182cm wire ([id number]) INFLATOR Merit 1 UA0220 746148 821649 168666 15 [employer] (ZEEP) Medical BasixCompak (OZ7402) SHEATH 6FR Terumo 1 BGZ365 447712 863121 366783 40 Thompson (NPY447) MULTIPACK Cardinal 1 253361 5 JL 4.0 5Fr Health catheter MULTIPACK Cardinal 1 251797 5 3DRC 5Fr Health catheter MULTIPACK Cardinal 1 160238 5 Pigtail 5 Health Fr catheter EXOSEAL 6Fr Cardinal 1 EX600 085275 572864 336170 10 (EX600) Health Signature Audit Hooks Stage Time Signature Unsigned Intra-Procedure 01/07/2018 Amanda Tate 6:52:03 PM RT(R) Signatures Monitor : Amanda Tate RT Signature : Date : Time : [id number] [place] [address]
--- NOTE | ~2018-01-07 | OP ---
PATIENT NAME: JOSE E CARROLL MEDICAL RECORD: [id number] :41 LOCATION:D.M2 D.2124 ADMISSION DATE:01/07/18 SURGEON: HELEN CAI MD DATE OF OPERATION: 01/07/2018 PROCEDURE: Left heart catheterization, selective coronary angiography, left femoral artery approach. Long sheath used secondary to tortuosity described in Dr. Drew's previous intervention. Procedure was tolerated. The patient returned to PCU after the sheath removed and ExoSeal device placed. FINDINGS: Left ventriculography shows a marked inferolateral hypokinesis. Overall, function reduced area of 20-25%. CORONARY ANATOMY: LEFT MAIN: Left main is free of disease. LAD: LAD shows residual thrombus, classic in its ostial portion. CIRCUMFLEX: Itself appears to have been thrombolysed nicely with a combination of heparin and Integrilin, no VIRGIL flow 3 distally at this point. RIGHT CORONARY ARTERY: Totally occluded, fills via left to right collaterals. MIRZA to LAD is widely patent throughout its course. IMPRESSION: Reperfusion with heparin, IIB, IIIA and oral antiplatelets. At this point in time, there is residual thrombus in the left anterior descending; however, he has a patent left anterior descending graft and rather risk distal embolization. We will continue anticoagulation at this point. Plavix compliance will be restressed obviously. TRANSINT:[id number] Voice Confirmation ID: [id number] DOCUMENT ID: [id number] HELEN CAI MD at 1407 CC: [id number] DICTATION DATE: 01/07/181844 PONY CYLINDER PRESS OPERATOR: 01/07/182025 DIS IN 01/08/18 [facility] [address] [place] [address]
--- NOTE | ~2018-01-07 | MORECARE ---
CASE MANAGEMENT DISCHARGE SUMMARY PATIENT: JOSE E CARROLL UNIT: [id number] ADM DATE: 01/07/18 AGE: 72 : 43 SEX: M ROOM/BED: D.2124 AUTHOR: COURTNEY KAMARA PHYSICIAN: REFERRING PHYSICIAN: HELEN CAI MD DATE OF SERVICE: 01/08/18 Discharge Plan Patient Name: JOSE E CARROLL Facility: [facility]:[place] : 1945 Planned Disposition: Home Anticipated Discharge Date: 01/08/18 Discharge Date: 01/08/2018 Expected LOS: 1 Initial Reviewer: [email or web address] Initial Review Date: 01/08/2018 Generated: 01/08/18 5:53 pm DCPIA - Discharge Planning Initial Assessment Updated by [email or web address]: Aquiles Vaughn on 01/08/18 4:51 pm * Is the patient Alert and Oriented? Yes * How many steps to enter\exit or inside your home? NONE * PCP DR. SANDERS * [facility] [address] OR [place] [facility] * Preadmission Environment Home Alone * ADLs Independent * Equipment None * Other Equipment NO MEDICAL EQUIPMENT PROVIDER PREFERENCE * List name and contact numbers for known caregivers / representatives who currently or will assist patient after discharge: IZA RODRIGUEZ, DAUGHTER, JANAE, FRIEND, * Verbal permission to speak to the caregivers and representatives has been obtained from the patient. N/A * Community resources currently utilized None * Please name any agencies selected above. NONE * Additional services required to return to the preadmission environment? No * Can the patient safely return to the preadmission environment? Yes * Has this patient been hospitalized within the prior 30 days at any hospital? Yes Last DP export: 01/08/18 3:30 Patient Name: JOSE E CARROLL Page [id number] at 1653 All edits/amendments must be made on the electronic document DICTATION DATE: 01/08/181651 ELECTRICAL RESEARCH ENGINEER: MOUNA 01/08/181651 RPT#: [id number] DC DATE:11/15/18 STATUS: DIS IN [facility] [address] [place] [address] END OF REPORT
--- NOTE | ~2018-01-07 | MORECARE ---
CASE MANAGEMENT DISCHARGE SUMMARY PATIENT: JOSE E CARROLL UNIT: [id number] ADM DATE: 01/07/18 AGE: 72 : 43 SEX: M ROOM/BED: D.2124 AUTHOR: COURTNEY KAMARA PHYSICIAN: REFERRING PHYSICIAN: HELEN CAI MD DATE OF SERVICE: 01/08/18 Discharge Plan Patient Name: JOSE E CARROLL Facility: [facility]:[place] : 1945 Planned Disposition: Home Anticipated Discharge Date: 01/08/18 Discharge Date: 01/08/2018 Expected LOS: 1 Initial Reviewer: [email or web address] Initial Review Date: 01/08/2018 Generated: 01/08/18 5:30 pm Patient Name: JOSE E CARROLL Page [phone] at 1630 All edits/amendments must be made on the electronic document DICTATION DATE: 01/08/18 1630 RAILROAD CAR CLEANER: MOUNA 01/08/18 1630 RPT#: [id number] DC DATE:01/08/18 STATUS: DIS IN [facility] [address] [place] [address] END OF REPORT
--- NOTE | ~2018-01-07 | DS ---
PATIENT:JOSE E CARROLL :41 MEDICAL RECORD: [id number] DISCHARGE SUMMARY ADMISSION DATE: 01/07/18 DISCHARGE DATE: 01/08/18 DIAGNOSES: 1. Acute inferolateral myocardial infarction. 2. Medical noncompliance. 3. Known history of coronary artery disease, status post intervention. 4. Hypertension. 5. Ischemic cardiomyopathy. BRIEF HISTORY AND HOSPITAL COURSE: A 72-year-old gentleman recently with intervention to circumflex. He has milieu of prescriptions, did not get his local prescription filled, so uncovered with antiplatelets. Had acute inferolateral myocardial infarction. Brought to the golf course laborer on an urgent basis. After receiving Integrilin, heparin, loading oral Plavix, actually had resolution of his thrombus. Some residual in the LAD; however, LAD itself was protected by bypass graft with MIRZA to the LAD at angiography. Discharged home in good condition. Compliance was reiterated on multiple occasions. He will see me back in his regularly scheduled followup. TRANSINT:[id number] Voice Confirmation ID: [id number] DOCUMENT ID: [id number] HELEN CAI MD at 1407 CC: [id number] DICTATION DATE: 01/08/18 08 CONFERENCE TRANSLATOR: 01/08/18 1043 DIS IN 01/08/18 [facility] [address] [place] [address]
--- NOTE | ~2018-01-07 | MORECARE ---
CASE MANAGEMENT DISCHARGE SUMMARY PATIENT: JOSE E CARROLL UNIT: [id number] ADM DATE: 01/07/18 AGE: 72 : 41 SEX: M ROOM/BED: D.2014 AUTHOR: ANH,DOC PHYSICIAN: REFERRING PHYSICIAN: HELEN CAI MD DATE OF SERVICE: 01/08/18 Discharge Plan Patient Name: JOSE E CARROLL Facility: [facility]:[place] : 1945 Planned Disposition: Home Anticipated Discharge Date: 01/08/18 Discharge Date: 01/08/2018 Expected LOS: 1 Initial Reviewer: [email or web address] Initial Review Date: 01/08/2018 Generated: 01/08/18 6:01 pm Comments DCP- Discharge Planning Updated by [email or web address]: Aquiles Vaughn on 01/08/18 3:[address] Patient Name: JOSE E CARROLL Admission Status: ER Accout number: [id number] Admission Date: 01-07-2018 : 1945 Admission Diagnosis: Attending: HELEN CAI Current LOS: 1 Anticipated DC Date: 01-08-2018 Planned Disposition: Home Primary Insurance: [employer] CHOICE PPO MCR [facility] Discharge Planning Comments: CM RECEIVED ORDER TO SEE PT HE DID NOT FILL HIS PLAVIX, TOLD THE DOCTOR HE DID NOT HAVE MONEY TO DO SO. CM MET WITH PT IN ROOM TO DISCUSS DISCHARGE PLANNING AND NEEDS. PT REPORTS LIVING AT HOME INDEPENDENTLY AND ALONE. PT REPORTS HAVING ASSISTANCE OF NEIGHBOR AND FRIEND NEEDED. PT HAS NO MEDICAL EQUIPMENT AND NO OUTSIDE SERVICES ASSISTING IN THE HOME. CM DISCUSSED AVAILABILITY OF HOME HEALTH, REHAB SERVICES AND MEDICAL EQUIPMENT. PT DENIES DISCHARGE NEEDS, REPORTS HIS FRIEND JANAE WILL PICK HIM UP FOR DISCHARGE HOME. PT REPORTS THAT HE WAS EXCITED ABOUT GOING TO THE [facility] AND HAD HOOKED UP HIS CAMPER GETTING READY TO LEAVE AND HAD CHEST PAINS. CM DISCUSSED PT NOT FILLING HIS PRESCRIPTIONS. PT INITIALLY REPORTED THAT HE WAS WAITING FOR HIS 30 DAY SUPPLY TO COME IN AND DID NOT WANT TO SPEND EXTRA MONEY AT PHARMACY. PT WAS NOT ABLE TO TELL CM HOW MUCH HIS PRESCRIPTION WOULD BE AND REPORTS HE DID NOT GO TO THE PHARMACY. CM ASKED PT IF HE CALLED HIS INSURANCE COMPANY TO ORDER THE MEDICATION OR ASK HOW MUCH A MONTH WOULD BE WHILE HIS 30 DAY SUPPLY WAS ORDERED. PT ADMITS HE DID NOT ORDER THE 3O DAY SUPPLY AND WAS NOT EVEN TAKING ASPARIN DIRECTED. PT REPORTS HAVING FUNDS TO PAY FOR THE MEDICATION AND THAT HIS 30 DAY SUPPLY WOULD BE AT NO COSTS TO HIM. CM DIRECTED PT TO GO TO PHARMACY AND IF IN DOUBT, CALL HIS INSURANCE PHARMACY BENEFIT LINE. CM DISCUSSED POSSIBILITY OF DAMAGE THAT COULD NOT BE REPAIRED OR EVEN IF PT DOES NOT TAKE PRESCRIBED MEDICATIONS. PT REPORTS UNDERSTANDING AND ASSURES CM THAT HE WILL FILL HIS MEDICATION. FURNITURE SPRAYER NURSE NOTIFIED. Cardiology Physician: Aquiles Vaughn DCPIA - Discharge Planning Initial Assessment Updated by [id number]: Aquiles Vaughn on 01/08/18 4:51 pm * Is the patient Alert and Oriented? Yes * How many steps to enter\exit or inside your home? NONE * PCP DR. SANDERS * [facility] [address] [facility] [address] [facility] * Preadmission Environment Home Alone * ADLs Independent * Equipment None * Other Equipment NO MEDICAL EQUIPMENT PROVIDER PREFERENCE * List name and contact numbers for known caregivers / representatives who currently or will assist patient after discharge: IZA RODRIGUEZ, DAUGHTER, JANAE, FRIEND, * Verbal permission to speak to the caregivers and representatives has been obtained from the patient. N/A * Community resources currently utilized None * Please name any agencies selected above. NONE * Additional services required to return to the preadmission environment? No * Can the patient safely return to the preadmission environment? Yes * Has this patient been hospitalized within the prior 30 days at any hospital? Yes Last DP export: 01/08/18 3:53 Patient Name: JOSE E CARROLL Page [id number] at 1701 All edits/amendments must be made on the electronic document DICTATION DATE: 01/08/181700 CONSULTING MANAGER: MOUNA 01/08/181700 RPT#: [id number] DC DATE:01/08/18 STATUS: DIS IN [facility] [address] [place] [address] END OF REPORT
--- NOTE | ~2018-01-07 | HP ---
PATIENT: JOSE E CARROLL MEDICAL RECORD: [id number] ACCOUNT: [id number] LOCATION:[address] : 41 ADMISSION DATE: 01/07/18 PCP: No PCP HISTORY AND PHYSICAL EXAMINATION HISTORY: A 72-year-old gentleman with recent intervention to [place] circumflex via Dr. Drew. He did not ever get his Plavix prescription filled. He has been taking aspirin only. He had acute onset of chest tightness and pressure, classic ischemic symptomatology. He was found to have ST elevation in the inferolateral leads, consistent with his previous CO 10 days ago. He was brought to the senior laboratory technician on emergent basis. PAST MEDICAL HISTORY: 1. Atrial fibrillation. 2. Hypertension. 3. Hyperlipidemia. 4. Coronary artery disease as described above. ALLERGIES: None known. PHYSICAL EXAMINATION: GENERAL: Comfortable-appearing gentleman, reports pain is improving. VITAL SIGNS: Pulse 82 and regular. Blood pressure 126/72. HEENT: Normocephalic and atraumatic. NECK: No bruits noted. HEART: Regular. Occasional extrasystole. II/ systolic ejection murmur. LUNGS: Fairly good air excursion. ABDOMEN: Soft and nontender. EXTREMITIES: Pulses are 2+ with no edema. IMPRESSION: Suspect acute stent thrombosis secondary to Plavix noncompliance. Revisualization and intervention as indicated. TRANSINT:[id number] Voice Confirmation ID: [id number] DOCUMENT ID: [id number] HELEN CAI MD at 1407 CC: [id number] DICTATION DATE: 01/07/181842 TRIAL MGR: 01/07/18 1904 DIS IN 01/08/18 [facility] [address] [place] [address]
[~2018-01-07 17:26] MED LIST changes: +ATROVENT 0.02%2.5 ML UPD; +BETAPACE 80 MG80 MG PO; +LEVOCETIRIZINE 5 MG PO; +PRAVACHOL40 MG PO; +ZANTAC300 MG PO
[2018-01-08 00:47] VITALS: BP 174/85
[2018-01-08 00:50] VITALS: Ht 185.4 cm; Wt 79.5 kg
[2018-01-08 04:00] VITALS: BP 179/83
== END 2018-01-08 13:28 | disposition home or self-care (01) | DRG 281 ==
LOC: D.ER 17:26 → D.CATH 17:26 → EDSTATUS 17:47 → D.SDCHOLD 18:40 → D.M2 18:41 → D.CATH 01-08 13:29 → D.SDCHOLD 01-08 13:56
PROVIDERS: Internal Medicine Interventional Cardiology
PROC: B2151ZZ Fluoroscopy of Left Heart using Low Osmolar Contrast (ICD-10-PCS; 2018-01-07)
PROC: 4A023N7 Measurement of Cardiac Sampling and Pressure, Left Heart, Percutaneous Approach (ICD-10-PCS; 2018-01-07)
PROC: 3E07317 Introduction of Other Thrombolytic into Coronary Artery, Percutaneous Approach (ICD-10-PCS; 2018-01-07)
PROC: B2111ZZ Fluoroscopy of Multiple Coronary Arteries using Low Osmolar Contrast (ICD-10-PCS; principal; 2018-01-07 18:02)
DX: I22.1 Subsequent ST elevation (STEMI) myocardial infarction of inferior wall (principal); T82.867A Thrombosis due to cardiac prosthetic devices, implants and grafts, initial encounter; I21.3 ST elevation (STEMI) myocardial infarction of unspecified site; I25.10 Atherosclerotic heart disease of native coronary artery without angina pectoris; I48.91 Unspecified atrial fibrillation; I10 Essential (primary) hypertension; E78.5 Hyperlipidemia, unspecified; I25.5 Ischemic cardiomyopathy; Z91.14 Patient's other noncompliance with medication regimen; Y83.8 Other surgical procedures as the cause of abnormal reaction of the patient, or of later complication, without mention of misadventure at the time of the procedure

== ENCOUNTER 2018-07-02 01:08 | Inpatient (IN) | payer MEDICARE ==
[~2018-07-02] VITALS: Ht 185.4 cm; Wt 67.3 kg
[2018-07-02] VITALS (22 sets, daily range): BP systolic 112–178; BP diastolic 68–111; Ht 185.4 cm; Wt 67.3 kg
--- NOTE | ~2018-07-02 | HEMODYNAMI ---
PATIENT:JOSE E CARROLL MEDICAL RECORD: [id number] : 41 [id number] ADMISSION DATE: 07/02/18 Generatedon:07/09/201814:00 Patient name: JOSE E CARROLL Patient #: [id number] SSN: : 1945 Date of study: 07/09/2018 Page: Of Hemodynamic Procedure Report Patient Data Patient Demographics Procedure consent was obtained First Name: JOSE E Gender: Male Last Name: CARLY : 1945 Patient #: [id number] Age: 72 year(s) Race: Additional ID: [id number] Contact details Address: [address] [place] [address] State: [place] City: [place] Zip code: [address] Past Medical History Allergies: No known allergies Admission Admission Data Admission Date: 07/02/2018 Admission Time: 3:18 Admit Source: Other Room #: D.2110 Lab Results Lab Result Date: 07/09/2018 Lab Result Time: 5:47 Biochemistry Name Units Result Min Max BUN mg/dl 10 --(-*--)-- 7 18 Creatinine mg/dl 0.8 --(-*--)-- 0.6 1.3 CBC Name Units Result Min Max Hematocrit % 35 *-(----)-- 42 54 Hemoglobin g/dl 12.6 -*(----)-- 13.5 17.5 Procedure Procedure Types Cath Procedure Diagnostic Procedure PPM/ICD Internal Cardiac Defib Dual Sedation Charges Moderate Sedation up to 15 minutes Procedure Description Procedure Date Procedure Date: 07/09/2018 Procedure Start Time: 13:29 Procedure Staff Name Function Yan Amos MD Performing Physician Ridge Silva MD Assisting physician Chris Forrest RT Monitor Radha Webber RT Scrub Kyle Estrada RN Nurse Procedure Data Cath Procedure Fluoroscopy Diagnostic fluoroscopy Total fluoroscopy Time: 3.3 time: 3.3 min min Diagnostic fluoroscopy Total fluoroscopy dose: dose: 60.6 mGy 60.6 mGy Contrast Material Contrast Material Type Amount (ml) Isovue 300 0 Estimated blood loss: 10 ml Procedure Complications No complications Procedure Medications Medication Administration Route Dosage Oxygen etCO2 Nasal cannula 2 l/min Lidocaine 1% added to field 20 Ancef (1Gm/50ml NS) I.V.P.B 1 g Ancef Irrigation Topical 1 g (1gm/500ml NS) 0.9% NaCl I.V. 50 ml/hr Versed I.V. 1 mg Fentanyl I.V. 50 mcg Versed I.V. 1 mg Fentanyl I.V. 50 mcg Fentanyl I.V. 50 mcg Fentanyl I.V. 50 mcg Hemodynamics Rest HGB: 12.6 (g/dl) Heart Rate: 60 (bpm) Snapshots Pre Cath Intra NCS Post Cath Vital Signs Time Heart Resp SPO2 etCO2 NIBP (mmHg) Rhythm Pain Sedation Rate (ipm) (%) (mmHg) Status Level (bpm) 13:13:50 68 23 98 0 155/89(133) NSR 0 (11) 10(A) , No pain 13:17:58 60 19 86 0 159/140(155) NSR 0 (11) 10(A) , No pain 13:22:14 60 25 100 0 154/84(132) NSR 0 (11) 10(A) , No pain 13:26:20 58 22 100 0 134/80(114) NSR 0 (11) 10(A) , No pain 13:30:24 66 25 99 0 134/79(116) NSR 0 (11) 10(A) , No pain 13:34:29 63 17 98 0 131/73(93) NSR 0 (11) 9(A) , No pain 13:38:29 78 13 97 0 126/80(110) NSR 0 (11) 9(A) , No pain 13:42:31 61 15 100 0 130/75(89) NSR 0 (11) 9(A) , No pain 13:46:32 55 15 96 0 136/76(108) NSR 0 (11) 9(A) , No pain 13:50:38 55 16 94 0 129/74(104) NSR 0 (11) 9(A) , No pain 13:54:42 54 12 94 0 133/74(104) NSR 0 (11) 10(A) , No pain 13:58:50 0 133/69(106) NSR 0 (11) 10(A) , No pain Medications Time Medication Route Dose Verified Delivered Reason Notes Effectiv eness by by 13:10:09 Oxygen etCO2 2 Yan Hoffmanie used for Nasal l/min St Sanjeev Estrada RN procedure cannula 13:13:03 Ancef Topical 1 g Yan Mu-Ism used for Irrigation St Sanjeev Silva MD procedure (1gm/500ml NS) 13:13:13 0.9% NaCl I.V. 50 Yan Buffie Per ml/hr St Sanjeev Estrada RN physician 13:13:20 Lidocaine added 20ml Yan Sabillon for local 1% to vial St Sanjeev Silva MD anesthetic field x 2 13:13:51 Ancef I.V.P.B 1 g Yan Mu-Ism used for (1Gm/50ml St Sanjeev Silva MD procedure NS) 13:29:19 Versed I.V. 1 mg Yan Wright for BetteSanjeev Estrada RN sedation 13:29:24 Fentanyl I.V. 50 Yan Hoffmanie for mcg BetteSanjeev Estrada RN sedation 13:33:29 Versed I.V. 1 mg Yan Hoffmanie for Bette Estrada RN sedation 13:33:32 Fentanyl I.V. 50 Yan Buffie for [facility] [place] BetteSanjeev Estrada RN sedation 13:37:13 Fentanyl I.V. 50 Yan Buffie for [facility] [place] BetteSanjeev Estrada RN sedation 13:45:53 Fentanyl I.V. 50 Yan Buffie for [facility] [place] BetteSanjeev Estrada RN sedation Procedure Log Time Note 13:01:41 Informed consent obtained and on chart 13:01:50 Admit Source: Other 13:02:47 Kyle Estrada RN sent for patient. Start room use. 13:02:59 H&P Date Dictated: 07/02/2018 Within 30 days and on chart.. 13:03:55 Lab Result : Creatinine 0.8 mg/dl 13:03:55 Lab Result : BUN 10 mg/dl 13:03:55 Lab Result : Hemoglobin 12.6 g/dl 13:03:55 Lab Result : Hematocrit 35 % 13:03:58 Lab results completed and on chart. 13:07:24 Time tracking: Regular hours (M-F 7:00 - 5:00) 13:07:28 Plan of Care:Hemodynamics will remain stable., Cardiac rhythm will remain stable., Comfort level will be maintained., Respiratory function will remain adequate., Patient/ family verbilizes understanding of procedure., Procedure tolerated without complication., Recovers from procedure without complications.. 13:07:33 Patient received from PCU to CCL 3 Alert and oriented. Tansferred to table in Supine position. 13:07:34 Warm blankets applied, and todd hugger turned on for patient comfort. 13:07:35 Correct patient and procedure confirmed by team. 13:07:35 ECG and BP/O2 sat monitors applied to patient. 13:07:36 Full Disclosure recording started 13:10:09 Oxygen 2 l/min etCO2 Nasal cannula was administered by Kyle Estrada RN; used for procedure; 13:12:43 Vital chart was started 13:13:03 Ancef Irrigation (1gm/500ml NS) 1 g Topical was administered by Ridge Silva MD; used for procedure; 13:13:13 0.9% NaCl 50 ml/hr I.V. was administered by Kyle Estrada RN; Per physician; 13:13:20 Lidocaine 1% 20ml vial x 2 added to field was administered by Ridge Silva MD; for local anesthetic; 13:13:51 Ancef (1Gm/50ml NS) 1 g I.V.P.B was administered by Ridge Silva MD; used for procedure; 13:17:07 Baseline sample Acquired. 13:18:36 Pre-procedure instructions explained to patient. 13:18:37 Pre-op teaching completed and patient verbalized understanding. 13:18:38 Family in patients room. 13:18:39 Patient NPO since Midnight. 13:18:47 Patient allergic to No known allergies 13:18:49 Is the patient allergic to Iodine/contrast media? No. 13:18:50 Patient diabetic? No. 13:18:52 Previous problem with sedation/anesthesia? No ? 13:18:53 Snore? Yes 13:18:54 Sleep apnea? No 13:18:54 Deviated septum? No 13:18:55 Opens mouth fully? Yes 13:18:56 Sticks out tongue? Yes 13:18:57 Airway obstruction? No ? 13:18:59 Dentures? No ? 13:19:03 Patient pain scale 0/10 ?. 13:19:06 IV patent on arrival in left forearm with 0.9% NaCl at [facility]. 13:19:56 Medtronic reimbursement representative Tramaine Goyal present for procedure. 13:26:44 Use device set DANIELLE PPM 13:26:47 2-0 Ticron Multipack ([id number]) opened to sterile field. 13:26:48 3-0 Vicryl Single Pack [id number] opened to sterile field. 13:26:51 5-0 Monocryl PS2 [id number] opened to sterile field. 13:26:51 Cautery Tip Ocean [employer] Representative opened to sterile field. 13:26:52 Cautery Pushbutton Pencil opened to sterile field. 13:26:53 Mepilex Dressing ([id number]) opened to sterile field. 13:26:55 Immobilizer Large opened to sterile field. 13:27:04 Grounding pad site Left thigh. 13:27:06 Grounding pad site free from injury. 13:27:20 Left chest area was prepped with chlora-prep and draped in sterile fashion 13:27:21 Alarms reviewed by R. N. 13:27:21 Sharps counted by scrub and verified by R.N. 13:27:35 Pre sharps counted by scrub and verified by RN: Sutures: 7; Sponges: 5; Stick needles: 2; Skin needles: 2; Blade: 1; Cautery: 1 13:28:08 Rhythm: sinus rhythm 13:28:32 Physician arrived 13:28:32 --------ALL STOP TIME OUT------ 13:28:33 Final Timeout: patient, procedure, and site verified with staff and physician. All members of the team are in agreement. 13:28:39 Left chest site verified by team. 13:28:49 Fire Safety Assessment: A--An alcohol-based skin anteseptic being used preoperatively., B--The operative or invasive procedure is being performed above the xiphoid process or in the oropharynx., C--Open oxygen or nitrous oxide is being used. 13:28:53 Physical assessment completed. ASA score P 3 - A patient with severe systemic disease as per Yan Amos MD. 13:28:55 Sedation plan: IV Moderate Sedation Medication:Versed, Fentanyl 13:29:03 Lidocaine 1% was administered to left subclavicular area by Ridge Silva MD . 13:29:04 Incision made to left subclavicular area. 13:29:11 Generator pocket made/opened. 13:29:19 Versed 1 mg I.V. was administered by Kyle Estrada RN; for sedation; 13:29:24 Fentanyl 50 mcg I.V. was administered by Kyle Estrada RN; for sedation; 13:30:35 VISIA Single Chamber ICD [id number] opened to sterile field. 13:33:29 Versed 1 mg I.V. was administered by Kyle Estrada RN; for sedation; 13:33:32 Fentanyl 50 mcg I.V. was administered by Kyle Estrada RN; for sedation; 13:34:19 Medtronic 6946M-62 ICD Lead opened to sterile field. 13:35:01 Left subclavian vein accessed with 7Fr Peel Away Sheath. 13:35:07 Ventricular lead inserted and advanced. 13:37:11 Ventricular lead positioned. 13:37:13 Fentanyl 50 mcg I.V. was administered by Kyle Estrada RN; for sedation; 13:41:30 Ventricular lead tested. 13:41:39 Peel-a-way sheath was split and removed. 13:41:49 Ventricular lead attachment was completed with 2-0 ticron. 13:41:53 Device pocket was irrigated with Ancef. 13:42:01 AICD was attached to lead(s) and inserted into pocket. 13:42:10 Generator was sutured in place with 2-0 ticron. 13:43:50 Subcutaneous closure was completed with 3-0 vicryl plus. 13:45:53 Fentanyl 50 mcg I.V. was administered by Kyle Estrada RN; for sedation; 13:50:51 Skin closure was completed with 5-0 monocryl. 13:52:47 Parameters-- Generator: Mode: VVI. Lower Rate: 40bpm. Upper Rate: N/Abpm. 13:53:10 Parameters--Ventricular P/R Wave: 0.5mV. Current: 0.7mA; Threshold: 0.7V; Impedence: 1015OHMS. 13:53:14 Lt Chest incision was dressed with Mepilex dressing. 13:53:18 Procedure ended.(Physican Out) 13:53:49 Fluoroscopy time 03.30 minutes. 13:53:59 Fluoroscopy dose: 60.6 mGy 13:53:59 Flurop Dose total: 60.6 13:54:01 Contrast amount:Isovue 300 0ml. 13:54:03 Sharps counted by scrub and verified by R.N. 13:54:16 Post sharps counted by scrub and verified by RN: Sutures: 7; Sponges: 5; Stick needles: 2; Skin needles: 2; Blade: 1; Cautery: 1 13:54:30 Insertion/operative site no bleeding no hematoma. 13:54:37 Post-op/insertion site Left Subclavian vein dressed using a Mepilex dressing. 13:54:43 Post left subclavian vein:stable, soft, clean and dry 13:54:45 Post Procedure Pulses reassessed and unchanged 13:54:58 Post-procedure physical assessment completed. ASA score P 3 - A patient with severe systemic disease as per Yan Amos MD. 13:55:01 Post procedure rhythm: unchanged. 13:55:03 Estimated blood loss: 10 ml 13:55:04 Post procedure instruction explained to patient.Patient verbalizes understanding. 13:55:05 Patient needs reinforcement of post procedure teaching. 13:56:34 Procedure type changed to Cath procedure, Diagnostic procedure, PPM/ICD, Internal Cardiac Defib Dual, Sedation Charges, Moderate Sedation up to 15 minutes 13:59:07 Procedure and supply charges have been captured, reviewed, submitted and are correct. 13:59:11 Procedure Complication : No complications 13:59:14 Vital chart was stopped 13:59:15 See physician's report for complete and final results. 13:59:16 Report given to PCU. 13:59:18 Patient transfered to PCU with Stretcher. 13:59:25 End room use (Document Last) Device Usage Item Name Manufacture Quantity Catalog Hospital Part Current Minimal Lot# / Number Charge Number Stock Stock Serial# Code 2-0 Ticron Ethicon 0 [id number] 5 Multipack ([id number]) 3-0 Vicryl Ethicon 1 [id number] [id number] 5 Single Pack [id number] 5-0 Monocryl Ethicon 1 [id number] [id number] 235456 5 PS2 Y495G Cautery Tip Microtek 1 [id number] [id number] [id number] 5 [employer] Cautery Microtek 1 [id number] [id number] 5 Push[employer] Pencil Mepilex Cardinal 1 [id number] [id number] [id number] 5 [facility] ([id number]) Immobilizer Cardinal 1 [id number] 5 Large Health VISIA Single Medtronic 1 [id number] [id number] [id number] 5 [id number] Chamber ICD 2019-05-08 [id number] Medtronic Medtronic 1 6946M-62 [id number] 5 [id number] 6946M-62 ICD 2020-01-03 Lead Signature Audit [place] Stage Time Signature Unsigned Intra-Procedure 07/09/2018 Chris Forrest 1:59:59 PM RT(R) Signatures Monitor : Chris Forrest RT Signature : Date : Time : [address] [address]
--- NOTE | ~2018-07-02 | HEMODYNAMI ---
PATIENT:JOSE E CARROLL MEDICAL RECORD: [id number] : 41 LOCATION:[facility] D.2302 ADMISSION DATE: 07/02/18 Generatedon:07/06/201815:49 Patient name: JOSE E CARROLL Patient #: [id number] SSN: : 1945 Date of study: 07/06/2018 Page: Of Hemodynamic Procedure Report Patient Data Patient Demographics Procedure consent was obtained First Name: JOSE E Gender: Male Last Name: CARLY : 1945 Patient #: [id number] Age: 72 year(s) Race: Additional ID: [id number] Contact details [address]: [address] [place] [address] State: [place] City: [place] Zip code: [address] Admission Admission Data Admission Date: 07/02/2018 Admission Time: 3:18 Room #: 2302 Procedure Procedure Types Cath Procedure Diagnostic Procedure LHC LHC w/Coronaries w/Grafts Procedure Description Procedure Date Procedure Date: 07/06/2018 Procedure Start Time: 15:27 Procedure End Time: 15:47 Procedure Staff Name Function Armin Hernandez RT Monitor Amanda Tate RT Scrub Yan Amos MD Performing Physician Shar Odell RN Nurse Radha Webber RT Monitor Procedure Data Cath Procedure Fluoroscopy Diagnostic fluoroscopy Total fluoroscopy Time: 3 time: 3 min min Diagnostic fluoroscopy Total fluoroscopy dose: 677 dose: 677 mGy mGy Contrast Material Contrast Material Type Amount (ml) Isovue 300 73 Entry Location Entry Primary Successful Side Size Upsize Upsize Entry Closure Succes sful Closure Location (Fr) 1 (Fr) 2 (Fr) Remarks Device Remarks Femoral Right 5 Fr 6 Fr 6 Fr Exoseal artery Long Short Estimated blood loss: 10 ml Diagnostic catheters Device Type Used For End Catheter Placement MULTIPACK JL 4.0 5Fr Left Coronary catheter Angiography MULTIPACK 3DRC 5Fr Right Coronary catheter Angiography MULTIPACK 3DRC 5Fr Internal mammary catheter arteriography MULTIPACK Pigtail 5 Fr LV Angiography catheter Procedure Complications No complications Procedure Medications Medication Administration Route Dosage 0.9% NaCl I.V. 100 ml/hr Oxygen etCO2 Nasal cannula 2 l/min Heparin Flush Bag added to field 2 bags (1000units/500ml NS) Lidocaine 2% added to field 20 Versed I.V. 1 mg Fentanyl I.V. 50 mcg Cardizem 5 mg/hr (125mg/125ml NS) Amiodarone 0.5 mg/min (600mg/100ml) Hemodynamics Rest Heart Rate: 62 (bpm) Pressure Samples Time Site Value (mmHg) Purpose Heart Use Rate(bpm) 15:40 LV 130/10,26 EDP 60 15:41 LV 134/14,24 Pullback 59 15:41 AO 134/59(87) Pullback 59 Gradients Valve Time Site 1 Site 2 Mean SEP/DFP Peak To Heart Use (mmHg) (sec/min) Peak Rate (mmHg) (bpm) Aortic 15:41 LV AO 5 9 0 59 134/14,24 134/59(87) Calculations Valve P-P Mean Valve Index Valve Source Name Gradient Area Flow (cm2) Aortic 0 5 0 5 Snapshots Pre Cath Intra NCS Post Cath Vital Signs Time Heart Resp SPO2 etCO2 NIBP (mmHg) Rhythm Pain Sedation Rate (ipm) (%) (mmHg) Status Level (bpm) 15:17:18 63 26 91 0 153/76(129) NSR 0 (11) 10(A) , No pain 15:21:36 63 30 93 14.9 160/84(131) NSR 0 (11) 10(A) , No pain 15:25:59 60 21 97 17.2 150/78(125) NSR 0 (11) 10(A) , No pain 15:30:14 70 32 97 0 150/82(124) NSR 0 (11) 10(A) , No pain 15:34:33 60 25 98 0 150/76(124) NSR 0 (11) 10(A) , No pain 15:38:50 56 43 97 14.2 150/74(120) NSR 0 (11) 9(A) , No pain 15:43:09 60 23 97 9.7 144/73(117) NSR 0 (11) 9(A) , No pain 15:47:22 58 25 96 23.1 148/78(122) NSR 0 (11) 9(A) , No pain Medications Time Medication Route Dose Verified Delivered Reason Not es Effectiveness by by 15:22:28 Amiodarone I.V. 0.5 Shar Shar for (600mg/100ml) drip(infusing mg/min Lorigan Lorigan arrhythmia upon arrival) RN RN 15:22:48 Cardizem I.V. 5 Shar Shar for (125mg/125ml NS) drip(infusing mg/hr Lorigan Lorigan arrhythmia upon arrival) RN RN 15:22:57 0.9% NaCl I.V. 100 Shar Shar Per ml/hr Lorigan Lorigan physician RN RN 15:23:08 Oxygen etCO2 Nasal 2 Shar Shar for low 02 cannula l/min Lorigan Lorigan sats RN RN 15:23:17 Heparin Flush added to 2 bags Shar Shar used for Bag field Lorigan Lorigan procedure (1000units/500ml RN RN NS) 15:23:30 Lidocaine 2% added to 20ml Shar Shar for local field vial Lorigan Lorigan anesthetic RN RN 15:28:40 Versed I.V. 1 mg Shar Shar for Lorigan Lorigan sedation RN RN 15:28:48 Fentanyl I.V. 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 Start room use. 14:57:38 Time tracking: Regular hours (M-F 7:00 - 5:00) 14:57:44 Plan of Care:Hemodynamics will remain stable., Cardiac rhythm will remain stable., Comfort level will be maintained., Respiratory function will remain adequate., Patient/ family verbilizes understanding of procedure., Procedure tolerated without complication., Recovers from procedure without complications.. 15:12:48 Patient received from ICU to CCL 2 Alert and oriented. Tansferred to table in Supine position. 15:12:49 Warm blankets applied, and todd hugger turned on for patient comfort. 15:12:50 Correct patient and procedure confirmed by team. 15:12:51 Signed procedure consent form obtained from patient. 15:12:53 ECG and BP/O2 sat monitors applied to patient. 15:16:04 Vital chart was started 15:16:06 Full Disclosure recording started 15:16:29 H&P Date Dictated: 07/02/2018 Within 30 days and on chart.. 15:19:59 Rhythm: sinus rhythm 15:20:02 Pre-op teaching completed and patient verbalized understanding. 15:20:02 Pre-procedure instructions explained to patient. 15:20:04 Family in waiting room. 15:20:05 Patient NPO since Midnight. 15:20:23 Is the patient allergic to Iodine/contrast media? No. 15:20:27 Is patient on blood thinner?No 15:20:29 Patient diabetic? No. 15:20:35 Previous problem with sedation/anesthesia? No ? 15:20:57 Snore? Yes 15:20:58 Sleep apnea? No 15:20:59 Deviated septum? No 15:21:00 Sticks out tongue? Yes 15:21:00 Opens mouth fully? Yes 15:21:02 Airway obstruction? No ? 15:21:04 Dentures? No ? 15:21:18 Pre procedure: right dorsailis pedis pulse 2+ Normal; easily identifiable; not easily obliterated 15:21:21 Patient pain scale 0/10 ?. 15:22:17 IV patent on arrival in left forearm with 0.9% NaCl at [facility]. 15:22:28 Amiodarone (600mg/100ml) 0.5 mg/min I.V. drip(infusing upon arrival) was administered by Shar Odell RN; for arrhythmia; 15:22:48 Cardizem (125mg/125ml NS) 5 mg/hr I.V. drip(infusing upon arrival) was administered by Shar Odell RN; for arrhythmia; 15:22:57 0.9% NaCl 100 ml/hr I.V. was administered by Shar Odell RN; Per physician; 15:23:08 Oxygen 2 l/min etCO2 Nasal cannula was administered by Shar Odell RN; for low 02 sats; 15:23:17 Heparin Flush Bag (1000units/500ml NS) 2 bags added to field was administered by Shar Odell RN; used for procedure; 15:23:22 Lab results completed and on chart. 15:23:30 Right groin area was prepped with chlora-prep and draped in sterile fashion 15:23:30 Lidocaine 2% 20ml vial added to field was administered by Shar Odell RN; for local anesthetic; 15:23:32 Sharps counted by scrub and verified by R.N. 15:23:32 Alarms reviewed by R. N. 15:23:44 Use device set Femoral Dx 15:23:45 Bag Decanter (2002S) opened to sterile field. 15:23:45 ACIST Syringe (11181) opened to sterile field. 15:23:46 Medline Cath Pack ([id number]) opened to sterile field. 15:23:47 DIAGNOSTIC WIRE .035 260cm J wire ([id number]) opened to sterile field. 15:23:48 ACIST Manifold (77674) opened to sterile field. 15:23:48 ACIST Hand Control (39245) opened to sterile field. 15:23:49 DIAGNOSTIC Multipack 5Fr catheter set (OG0748) opened to sterile field. 15:23:50 SHEATH 5FR Pickens (EQO969) opened to sterile field. 15:23:50 Tegaderm 4 x 4 (1626W) opened to sterile field. 15:24:04 Baseline sample Acquired. 15:25:46 Final Timeout: patient, procedure, and site verified with staff and physician. All members of the team are in agreement. 15:25:48 Right groin site verified by team. 15:25:50 Maximum allowable Isovue 300 dose 300ml. Physician notified. (300ml for normal creatinines. For patients with creatinine of 1.7 or higher multiply weight(kg) x 5 divided by creatinine.) 15:25:53 Fire Safety Assessment: A--An alcohol-based skin anteseptic being used preoperatively., C--Open oxygen or nitrous oxide is being used., D--An ESU, laser, or fiber-optic light is being used. 15:25:56 Physical assessment completed. ASA score P 2 - A patient with mild systemic disease as per Yan Amos MD. 15:25:59 Sedation plan: IV Moderate Sedation Medication:Versed, Fentanyl 15:27:45 Procedure started. 15:27:47 Local anesthetic to right femoral artery with Lidocaine 2% by Yan Amos MD.INITIAL ACCESS ONLY 15::59 Zero performed for pressure channel P1 15:28:40 Versed 1 mg I.V. was administered by Shar Odell RN; for sedation; 15::48 Fentanyl 50 mcg I.V. was administered by Shar Odell RN; for sedation; 15:29:12 Zero performed for pressure channel P1 15:30:39 A 5 Fr sheath was inserted into the Right Femoral artery 15:31:52 SHEATH 6FR ARROW 45cm ([id number]) opened to sterile field. 15:32:19 Sheath upsized to a 6 Fr Long. 15:34:57 A MULTIPACK JL 4.0 5Fr catheter was advanced over the wire and used for Left Coronary Angiography. 15:36:19 Catheter removed. 15:37:17 A MULTIPACK 3DRC 5Fr catheter was advanced over the wire and used for Right Coronary Angiography. 15:39:22 A MULTIPACK 3DRC 5Fr catheter was advanced over the wire and used for Internal mammary arteriography. to LAD 15:39:58 A MULTIPACK Pigtail 5 Fr catheter was advanced over the wire and used for LV Angiography. 15:40:54 LV gram done using HALL 15:40:58 Injector settings: Ml/sec: 10, Volume: 20, 15:41:02 EF : 30 % 15:41:14 Catheter removed. 15:41:50 SHEATH 6FR Pickens (ZPH379) opened to sterile field. 15:42:05 Sheath upsized to a 6 Fr Short. 15:42:23 Sheath removed intact; hemostasis achieved with Exoseal to the Right Femoral artery. 15:42:25 Procedure ended.(Physican Out) 15:43:26 Fluoroscopy time 03.00 minutes. 15:43:30 Fluoroscopy dose: 677 mGy 15:43:30 Flurop Dose total: 677 15:43:33 Contrast amount:Isovue 300 73ml. 15:43:34 Sharps counted by scrub and verified by R.N. 15:43:36 Insertion/operative site no bleeding no hematoma. 15:43:40 Post-op/insertion site Right Femoral artery dressed using a 4 x 4 and Tegaderm. 15:43:53 Post right femoral artery:stable, clean and dry 15:43:54 Post Procedure Pulses reassessed and unchanged 15:43:59 Post-procedure physical assessment completed. ASA score P 2 - A patient with mild systemic disease as per Yan Amos MD. 15:44:01 Post procedure rhythm: unchanged. 15:44:03 Estimated blood loss: 10 ml 15:44:04 Patient needs reinforcement of post procedure teaching. 15:44:04 Post procedure instruction explained to patient.Patient verbalizes understanding. 15:44:39 Procedure Complication : No complications 15:44:44 See physician's report for complete and final results. 15:45:09 EXOSEAL 6Fr (EX600) opened to sterile field. 15:45:18 Procedure and supply charges have been captured, reviewed, submitted and are correct. 15:47:38 Vital chart was stopped 15:47:43 Report given to ICU. 15:47:47 Patient transfered to ICU with Bed. 15:47:54 Full Disclosure recording stopped 15:47:54 Procedure ended. 15:47:58 End room use (Document Last) Device Usage Item Name Manufacture Quantity Catalog Hospital Part Current Minimal L ot# / Number Charge Number Stock Stock Serial# Code ACIST Acist 1 04198 943748 181628 264482 20 Syringe Medical (74568) Systems Inc Bag Microtek 1 053229 90486 403977 5 Decanter Medical Inc. () Medline Medline 1 [id number] 760461 12990 426820 5 Cath Pack ([id number]) DIAGNOSTIC St Ty 1 131292 049236 422466 602819 30 WIRE .035 260cm J wire (006602) ACIST Hand Acist 1 80773 649859 229117 552650 5 Control Medical (05925) Systems Inc ACIST Acist 1 80028 031053 427397 873632 5 Manifold Medical (68319) Systems Inc DIAGNOSTIC Cardinal 1 OQ0219 090456 16271 629026 30 Multipack Health 5Fr catheter set (CT4917) Tegaderm 4 3M 1 1626W 903734 131414 095915 5 x 4 (1626W) SHEATH 5FR Terumo 1 OZH370 259233 699249 369690 5 Pickens (KMB951) SHEATH 6FR Teleflex 1 CL-90132 575390 577126 877599 5 ARROW 45cm (CL-40620) MULTIPACK Cardinal 1 293361 5 JL 4.0 5Fr Health catheter MULTIPACK Cardinal 1 892090 5 3DRC 5Fr Health catheter MULTIPACK Cardinal 1 055415 5 Pigtail 5 Health Fr catheter SHEATH 6FR Terumo 1 ABA030 532012 834063 440272 40 Pickens (PEM962) EXOSEAL 6Fr Cardinal 1 EX600 122476 638785 471346 10 (EX600) Health Signature Audit [place] Stage Time Signature Unsigned Intra-Procedure 07/06/2018 Radha 3:49:05 PM Counts RT(R) Signatures Monitor : Armin Hernandez RT Signature : Date : Time : Monitor : Radha Signature : Counts RT Date : Time : [place] [id number] [facility] [place] [address]
[2018-07-02 01:51] LABS: BASOPHILS 0.1 % (0-2); EOSINOPHILS 0 % (0-7); HEMATOCRIT 43.9 % (42.0-54.0); HEMOGLOBIN 15.4 g/dL (13.5-17.5); IMMATURE GRANULOCYTES 0.5 % (0-5); LYMPHOCYTES 17.8 % (15-50); MCH 31.9 pg (26.0-34.0); MCHC 35.1 g/dL (31.0-37.0); MCV 90.9 fL (80.0-100.0); MEAN PLATELET VOLUME 11.6 fL (7.4-10.4); MONOCYTES 18.4 % (2-11); NEUTROPHILS 63.2 % (40-80); PLATELET COUNT 232 10x3/uL (130-400); RBC 4.83 10x6/uL (4.20-6.10); RDW 13.7 % (11.5-14.5); WBC 16.2 10x3/uL (4.8-10.8)
--- NOTE | 2018-07-02 02:06 | NUR ---
PT GIVEN ICE WATER TO DRINK, DENIES ANY FURTHER NEEDS AT THIS TIME. WILL CONTINUE TO MONITOR.
[2018-07-02 02:07] LABS: ALBUMIN 4.4 g/dL (3.4-5.0); ALKALINE PHOSPHATASE 80 U/L (46-116); ALT (SGPT) 33 U/L (10-68); BILIRUBIN - TOTAL 0.94 mg/dL (0.2-1.3); CALC OSMOLALITY 296 mosm/kg (275-300); CALCIUM 9.3 mg/dL (8.5-10.1); CHLORIDE - SERUM 104 mmol/L (98-107); CREATININE - SERUM 2.5 mg/dL (0.6-1.3); GLUCOSE 71 mg/dL (74-106); POTASSIUM - SERUM 4.2 mmol/L (3.5-5.1); PROTEIN - SERUM 9.4 g/dL (6.4-8.2); SODIUM 140 mmol/L (136-145); UREA NITROGEN 69 mg/dL (7-18); eGFR NON AFRICAN AMERICAN 27 mL/min (90-120)
[2018-07-02 02:21] LABS: CKMB 7.9 U/L (0.0-3.6); CREATINE KINASE 308 UL (21-232); MAGNESIUM - SERUM 2.5 mg/dL (1.8-2.4)
[2018-07-02 02:59] LABS: APTT 22.1 SECONDS (22.8-39.4); INR 1.17 (0.85-1.17); PROTIME 12.2 SECONDS (11.6-15.0)
--- NOTE | 2018-07-02 03:00 | NUR ---
PT CARDIOVERTED AT 200 J INTO SINUS RYTHM. PT TOLERATED WELL.
--- NOTE | 2018-07-02 07:00 | NUR ---
SLEEPING. RESP DEEP AND REGULAR NO DISTRESS. EYES CLOSED
--- NOTE | 2018-07-02 07:23 | NUR ---
PT ARRIVED TO ICU VIA STRETCHER FROM ER. TRANSFERS SELF TO ICU BED, TOLERATED WELL. SOME CONFUSION NOTED IN ACTIONS BUT ANSWERS APPROPRIATELY. ON N/C 2LPM. LEFT FOREARM IV WITN NS. RESTLESS INCREASED AND ATTEMPTED TO GET UP FROM BED. RESPIRATIONS INCREASED AND PT BECAME MORE CONFUSED. PT STATES HE HAS SMALL PAIN TO CHEST WITH PRN MORPHINE GIVEN. AGITATION AND CONFUSIONED INCREASED. DR CAI CALLED AND GIVEN REPORT FROM CHARGE NURSE AND RECEIVED ORDERS FOR LASIX AND ATIVAN. LUNG SOUNDS WET WITH FLUID REDUCED AND LASIX AND ATIVAN. PT CALMED AND RESPIRATIONS IMPROVED. O2 94%. REPORT GIVEN.
--- NOTE | 2018-07-02 08:00 | NUR ---
AWAKE RESTLESS PULLING ON EVERYTHING. LINES, EKG WIRES. OXYGEN MASK. TRIED TO GET PATIENT TO VOID IN URINAL. UNABLE TO URINATE. NOT VERY COOPERATIVE DURING EXAM. HANDS AND FEET COLD TO TOUCH BODY ABD WARM TO TOUCH. IV RIGH WRIST WITHOUT REDNESS OR SWELLING SALINE LOCK. IV LEFT FOREARM INFUSING WITH NS AT 10 ML HOUR. DENIES PAIN OR SHORTNESS OF BREATH. MONITOR SB RATE 48-55. RESP DEEP AND REGULAR. OXYGEN MASK AT 55%.
--- NOTE | 2018-07-02 08:30 | NUR ---
DR. CAI HERE ORDERS TO TURN IV FLUIDS UP TO 100 ML HOUR, PATEINT STILL UNABLE TO VOID. ORDERS FOR ARITA CATH RECEIVED. PATIENT CONFUSED REORIENTATED TO PLACE AND SITUATION. AFTER BEING TOLD SEVERAL TIME PATIENT WILL STOP. NEIGHBOR HERE INSTRUCTED TO CONTACT HIS CHILDREN. PATIENT WAS NO ABLE TO MAKE DECISIONS .IV MOVED TO RIGHT WRIST. 16 F ARITA CATH INSERTED IN BELL HOLE DIGGER WITH IMMEDIATE RETURN OF CLEAR YELLOW URINE. PATIENT TOLERATED WELL.
[2018-07-02 09:03] LABS: T4 THYROXIN - FREE 1.16 ng/dL (0.76-1.46); THYROID STIMULATING HORMONE 3.86 uIU/mL (0.36-3.74)
[2018-07-02 09:08] LABS: CKMB 36.7 U/L (0.0-3.6)
[2018-07-02 09:15] LABS: CREATINE KINASE 466 UL (21-232); TROPONIN-I 12.481 ng/mL (0.000-0.060)
--- NOTE | 2018-07-02 10:30 | NUR ---
CHLORHEXDINE BATH GIVEN CASTRO COLEY. FAMILY HERE SON AND DAUGHTER. PATIENT MORE ALERT ALITTLE MORE COOPERATIVE. STILL CONFUSED
[2018-07-02 11:15] LABS: COLOR YELLOW (YELLOW)
[2018-07-02 11:16] LABS: AMORPHOUS SEDIMENT <1+ /lpf (NONE SEEN); APPEARANCE CLOUDY (CLEAR); BACTERIA FEW /hpf (NONE SEEN); BILIRUBIN NEGATIVE (NEGATIVE); EPITHELIAL CELLS RARE /hpf (0-5); GLUCOSE NEGATIVE (NEGATIVE); KETONE NEGATIVE (NEGATIVE); MUCUS <1+ /lpf (NONE SEEN); NITRITE NEGATIVE (NEGATIVE); PROTEIN 1+ mg/dL (NEGATIVE); RED CELLS - URINE RARE /hpf (0-5); SPECIFIC GRAVITY 1.015 (1.005-1.020); UROBILINOGEN NORMAL (NORMAL)
--- NOTE | 2018-07-02 11:30 | NUR ---
LUNCH TRAY SERVED ATE FAIR. FEED SELF. MORE ALERT AND COOPERATIVE STILL CONFUSED
--- NOTE | 2018-07-02 13:00 | NUR ---
MORE ALERT STILL PULLING AND REARRANGING LINES , BUT MORE COOPERATIVE. JOKING TAKING PO FLUIDS WELL, DENIES PAIN. FEET AND HANDS STILL COLD. LEGS ALITTLE MOTTLED. MONITOR STILL SB RATE 48-55. ARITA CATH PATENT. BOTH IV'S SITES WRAPPED IN KERLIX TO PROTECT LINES.
[2018-07-02 14:59] LABS: CKMB 43.1 U/L (0.0-3.6); CREATINE KINASE 464 UL (21-232)
[2018-07-02 15:00] LABS: POTASSIUM - SERUM 3.5 mmol/L (3.5-5.1)
--- NOTE | 2018-07-02 15:30 | NUR ---
SON AND DAUGHTER HERE UPDATE GIVEN. NO CHANGE IN PATIENT. STILL MAKES INAPPRIOPIATE COMMENDS, THAT DO NOT MAKE SENSE. NO DISTRESS. GOOD COUGH. LUNGS LESS CONGESTED
--- NOTE | 2018-07-02 16:30 | NUR ---
SUPPER TRAY SERVED ATE WELL. ICE CREAM PROVIDED
--- NOTE | 2018-07-02 17:15 | NUR ---
TO RADIOLOGY PER WHEEL CHAIR. STOOD AND WALK TO WHEEL CHAIR. FOR LUNG SCAN. SON AND DAUGHTER HERE
--- NOTE | 2018-07-02 17:23 | MORECARE ---
CASE MANAGEMENT DISCHARGE SUMMARY PATIENT: JOSE E CARROLL UNIT: [id number] ADM DATE: 07/02/18 AGE: 72 : 41 SEX: M ROOM/BED: D.2302 AUTHOR: COURTNEY KAMARA PHYSICIAN: REFERRING PHYSICIAN: ISSAC ANNA MD DATE OF SERVICE: 07/02/18 Discharge Plan Patient Name: JOSE E CARROLL Facility: [facility]:[place] : 1945 Planned Disposition: Anticipated Discharge Date: Discharge Date: Expected LOS: Initial Reviewer: [email or web address] Initial Review Date: 07/02/2018 Generated: 07/02/18 6:23 pm DCPIA - Discharge Planning Initial Assessment Updated by [email or web address]: Jennifer Ruiz on 07/02/18 5:20 pm * Is the patient Alert and Oriented? Yes * How many steps to enter\exit or inside your home? * PCP MARILYN * Pharmacy [facility] * Preadmission Environment Home Alone * ADLs Independent * Other Equipment DENIES ANY MEDICAL EQUIPMENT * List name and contact numbers for known caregivers / representatives who currently or will assist patient after discharge: JOSE E LEMUS - SON- [phone] IZA RosaDAUGHTER- [phone] * Verbal permission to speak to the caregivers and representatives has been obtained from the patient. Yes * Community resources currently utilized None * Additional services required to return to the preadmission environment? No * Can the patient safely return to the preadmission environment? Yes * Has this patient been hospitalized within the prior 30 days at any hospital? No Patient Name: JOSE E CARROLL Page [id number] at 1723 All edits/amendments must be made on the electronic document DICTATION DATE: 07/02/181722 RETAIL PLANNING MANAGER: MOUNA 07/02/181722 RPT#: [id number] DC DATE: STATUS: ADM IN [facility] [address] [place] [address] END OF REPORT
--- NOTE | 2018-07-02 17:46 | MORECARE ---
CASE MANAGEMENT DISCHARGE SUMMARY PATIENT: JOSE E CARROLL UNIT: [id number] ADM DATE: 07/02/18 AGE: 72 : 43 SEX: M ROOM/BED: D.2302 AUTHOR: ANH,DOC PHYSICIAN: REFERRING PHYSICIAN: ISSAC ANNA MD DATE OF SERVICE: 07/02/18 Discharge Plan Patient Name: JOSE E CARROLL Facility: [facility]:[place] : 1945 Planned Disposition: Anticipated Discharge Date: Discharge Date: Expected LOS: Initial Reviewer: [email or web address] Initial Review Date: 07/02/2018 Generated: 07/02/18 6:46 pm Comments DCP- Discharge Planning Updated by [email or web address]: Jennifer Ruiz on 07/02/18 4:[address] Patient Name: JOSE E CARROLL Admission Status: ER Accout number: [id number] Admission Date: 07-02-2018 : 1945 Admission Diagnosis: Attending: ISSAC ANNA Current LOS: 1 Anticipated DC Date: Planned Disposition: Primary Insurance: [employer] CHOICE PPO MCR [employer] Discharge Planning Comments: CM met with patient at bedside after obtaining verbal consent. Patient states he lives alone and plans on returning upon discharge. Patient denies any use of medical equipment or home health at this time. As CM asked more questions it became apparent that patient is somewhat confused. Unless his confusion gets much better discharge back to his home alone wouldn't be a safe discharge. CM will try to get in touch with family and continue to monitor patients mental status. CM will continue to follow and assist as needed with discharge planning / needs. Communications Superintendent: Jennifer Ruiz DCPIA - Discharge Planning Initial Assessment Updated by [email or web address]: Jennifer Ruiz on 07/02/18 5:20 pm * Is the patient Alert and Oriented? Yes * How many steps to enter\exit or inside your home? * PCP MARILYN * Pharmacy [facility] * Preadmission Environment Home Alone * ADLs Independent * Other Equipment DENIES ANY MEDICAL EQUIPMENT * List name and contact numbers for known caregivers / representatives who currently or will assist patient after discharge: JOSE E LEMUS - SON- [phone] IZA VALDOVINOS- [phone] * Verbal permission to speak to the caregivers and representatives has been obtained from the patient. Yes * Community resources currently utilized None * Additional services required to return to the preadmission environment? No * Can the patient safely return to the preadmission environment? Yes * Has this patient been hospitalized within the prior 30 days at any hospital? No Last DP export: 07/02/18 4:23 pm Patient Name: JOSE E CARROLL Page [id number] at 1746 All edits/amendments must be made on the electronic document DICTATION DATE: 07/02/181744 CNC WOOD LATHE OPERATOR: MOUNA 07/02/181744 RPT#: [id number] DC DATE: STATUS: ADM IN [facility] [address] [place] [address] END OF REPORT
--- NOTE | 2018-07-02 17:50 | NUR ---
RETURNED TO ROOM. PATIENT TOLERATED FAIR. FAMILY AT BEDSIDE. QUESTIONS ANSWERED
--- NOTE | 2018-07-02 19:00 | NUR ---
REPORT RECEIVED. RECEIVED PATIENT AWAKE AND ALERT . ORIENTED TO PERSON PLACE AND DATE WITH CONFUSION TO SITUATION. FAMILY AT BEDSIDE. MONITORS CONNECTED TO PATIENT WITH ALARMS SET. VSS. CALL LIGHT IN REACH. SHIFT ASSESSMENT COMPLETED PER FLOW SHEET WITH NO ACUTE DISTRESS OBSERVED.
[2018-07-02 20:33] LABS: CKMB 31.3 U/L (0.0-3.6); CREATINE KINASE 406 UL (21-232); TROPONIN-I 8.875 ng/mL (0.000-0.060)
--- NOTE | 2018-07-02 21:00 | NUR ---
AWAKE AND ALERT. VSS. NO ACUTE DISTRESS OBSERVED. CALL LIGHT IN REACH
--- NOTE | 2018-07-02 23:00 | NUR ---
REASSESSMENT COMPLETED PER FLOW SHEET WITH NO CHANGES OR ACUTE DISTRESS OBSERVED. CALL LIGHT IN REACH
[2018-07-03] VITALS (34 sets, daily range): BP systolic 91–187; BP diastolic 76–124
--- NOTE | 2018-07-03 01:00 | NUR ---
VSS. NO ACUTE DISTRESS OBSERVED AT PRESENT. CALL LIGHT IN REACH
--- NOTE | 2018-07-03 03:00 | NUR ---
REASSESSMENT COMPLETED PER FLOW SHEET WITH NO CHANGES OR ACUTE DISTRESS OBSERVED. CALL LIGHT IN REACH
[2018-07-03 03:53] LABS: BASOPHILS 0 % (0-2); EOSINOPHILS 0 % (0-7); IMMATURE GRANULOCYTES 0.2 % (0-5); LYMPHOCYTES 9.2 % (15-50); MCH 31.1 pg (26.0-34.0); MEAN PLATELET VOLUME 11.3 fL (7.4-10.4); MONOCYTES 10.2 % (2-11); NEUTROPHILS 80.4 % (40-80); RDW 13.1 % (11.5-14.5); WBC 12.3 10x3/uL (4.8-10.8)
[2018-07-03 03:55] LABS: HEMATOCRIT 33.7 % (42.0-54.0); HEMOGLOBIN 11.8 g/dL (13.5-17.5); MCV 88.9 fL (80.0-100.0); PLATELET COUNT 160 10x3/uL (130-400); RBC 3.79 10x6/uL (4.20-6.10)
[2018-07-03 04:00] LABS: CALCIUM 7.5 mg/dL (8.5-10.1)
[2018-07-03 04:08] LABS: CREATININE - SERUM 1.6 mg/dL (0.6-1.3)
--- NOTE | 2018-07-03 05:00 | NUR ---
VSS. NO ACUTE DISTRESS OBSERVED. CALL LIGHT IN REACH
--- NOTE | 2018-07-03 11:02 | NUR ---
20 PIV STARTED ON LEFT FOREARM BY JESSICA BAXTER.
--- NOTE | 2018-07-03 11:39 | NUR ---
DR. ANNA NOTIFIED OF BP 169/103 AT THIS TIME. AMIODARONE LOADING DOSE GIVEN AT THIS TIME.
--- NOTE | 2018-07-03 11:46 | NUR ---
NORVAS 5MG TAB GIVEN PER ORDERS.
--- NOTE | 2018-07-03 13:07 | NUR ---
MEAL TRAY DELIVERED AND SET UP. PHARMACY NOTIFIED OF NEED FOR AMIODARONE DRIP. WILL BRING ONE UP SOON AVALAIBLE.
--- NOTE | 2018-07-03 13:32 | NUR ---
AMIODARONE STARTED AT 1MG/MIN PER ORDERS. SON AND DAUGHTER AT BEDSIDE. NO FURTHER NEEDS. WILL CONTINUE TO MONITOR.
--- NOTE | 2018-07-03 15:43 | NUR ---
HIBICLENS BATH GIVEN AT THIS TIME. INCONTINENT URINE EPISODE NOTED. PT REMAINS WITH CONFUSION. BP CONTINUES ELEVATED. WILL CONTINUE TO MONITOR.
--- NOTE | 2018-07-03 17:33 | NUR ---
DINNER TRAY DELIVERED AND SET UP. PT SITTING ON SIDE OF BED.
--- NOTE | 2018-07-03 17:43 | MORECARE ---
CASE MANAGEMENT DISCHARGE SUMMARY PATIENT: JOSE E CARROLL UNIT: [id number] ADM DATE: 07/02/18 AGE: 72 : 41 SEX: M ROOM/BED: D.2302 AUTHOR: ANH,DOC PHYSICIAN: REFERRING PHYSICIAN: ISSAC ANNA MD DATE OF SERVICE: 07/03/18 Discharge Plan Patient Name: JOSE E CARROLL Facility: [facility]:[place] : 1945 Planned Disposition: Anticipated Discharge Date: Discharge Date: Expected LOS: Initial Reviewer: [email or web address] Initial Review Date: 07/02/2018 Generated: 07/03/18 6:42 pm Comments DCP- Discharge Planning Updated by [email or web address]: Jennifer Ruiz on 07/02/18 4:[address] Patient Name: JOSE E CARROLL Admission Status: ER Accout number: [id number] Admission Date: 07-02-2018 : 1945 Admission Diagnosis: Attending: ISSAC ANNA Current LOS: 1 Anticipated DC Date: Planned Disposition: Primary Insurance: [employer] PPO MCR ADVANT Discharge Planning Comments: CM met with patient at bedside after obtaining verbal consent. Patient states he lives alone and plans on returning upon discharge. Patient denies any use of medical equipment or home health at this time. As CM asked more questions it became apparent that patient is somewhat confused. Unless his confusion gets much better discharge back to his home alone wouldn't be a safe discharge. CM will try to get in touch with family and continue to monitor patients mental status. CM will continue to follow and assist as needed with discharge planning / needs. Store Operations Manager: Jennifer Ruiz DCPIA - Discharge Planning Initial Assessment Updated by [email or web address]: Jennifer Ruiz on 07/02/18 5:20 pm * Is the patient Alert and Oriented? Yes * How many steps to enter\exit or inside your home? * PCP MARILYN * Pharmacy [facility] * Preadmission Environment Home Alone * ADLs Independent * Other Equipment DENIES ANY MEDICAL EQUIPMENT * List name and contact numbers for known caregivers / representatives who currently or will assist patient after discharge: JOSE E LEMUS - SON- [phone] IZA VALDOVINOS- [phone] * Verbal permission to speak to the caregivers and representatives has been obtained from the patient. Yes * Community resources currently utilized None * Additional services required to return to the preadmission environment? No * Can the patient safely return to the preadmission environment? Yes * Has this patient been hospitalized within the prior 30 days at any hospital? No Last DP export: 07/02/18 4:46 pm Patient Name: JOSE E CARROLL Page [id number] at 1743 All edits/amendments must be made on the electronic document DICTATION DATE: 07/03/181741 VIDEO GAME TECHNICIAN: MOUNA 07/03/181741 RPT#: [id number] DC DATE: STATUS: ADM IN [facility] [address] [place] [address] END OF REPORT
--- NOTE | 2018-07-03 18:03 | NUR ---
HR 170S. DR. CONNELLY NOTIFIED. ORDERED 150MG AMIODARONE BOLUS X 1. WANTS AMIODARONE DRIP TO [place] AT 1MG/MIN.
--- NOTE | 2018-07-03 19:15 | NUR ---
REPORT RECEIVED PT IN UNCONTROLLED A.FIB RATE OF 170'S. NURSE REPORTS PT HAD RECEIVED AN AMIODARONE BOLUS EARLIER TODAY AND WAS ON THE 1.0MG CONTINUOUS GTT HOWEVER HEART RATE BACK UP TO 170'S SHE WAS GIVEN ORDER FOR AN ADDITIONAL AMIODARONE BOLUS AROUND AN HOUR AGO WHICH WAS WAS NOT EFFECTIVE STILL UNCONTROLLED 160-170'S. 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 ORDER GIVEN FOR LOPRESSOR 5 MG IV ONE TIME DOSE CONTINUE AMIODARONE.
--- NOTE | 2018-07-03 19:22 | NUR ---
HR 166, DR. CONNELLY NOTIFIED. ORDERED 5MG METOPROLOL IV X 1.
--- NOTE | 2018-07-03 19:30 | NUR ---
INITIAL ASSESSMENT COMPLETE PT ALERT ORIENTED X4 DENIES CP DISTRESS OR SOB. LOPRESSOR 5 MG GIVEN SIVP PER ORDER. RESP EVEN AND NONLABORED BREATH SOUMDS CLEAR TO AUSCULTATE ON 3LPM NC WHICH PT HAS TAKEN OFF PLACED BACK ON AND O2 SAT 97%. WILL CLOSELY MONITOR PATIENT CM ALARMS ON AND AUDIBLE. CALL LIGHT IN REACH PT VERBALIZES UNDERSTANDING TO CALL NURSE FOR NEEDS AND IF PT HAS ANY CP OR SOB
--- NOTE | 2018-07-03 22:00 | NUR ---
PT ABLE TO USE URINAL BUT SPILLED SOME URINE ON BED AND SELF SO COMPLETE LINEN CHANGE AND PT WASHED BODY
--- NOTE | 2018-07-03 22:10 | NUR ---
DR CONNELLY PAGED THROUGH ANSWERING SERVICE AT [phone]
--- NOTE | 2018-07-03 22:38 | NUR ---
ATTEMPT TO PAGE DR CONNELLY AGAIN THROUGH CARDIOLOGY ANSWERING SERVICE [phone] NO ANSWER TO FIRST PAGE AT [phone]
--- NOTE | 2018-07-03 23:00 | NUR ---
ASSESSMENT COMPLETED. CM ALARMS ON AND AUDIBLE UNCONTROLLED AFIB 160'S STILL AWAITING DR CONNELLY RETURN CALL FROM PAGE CONCERNING RATE STILL 160'S. PT DENIES CP OR SOB STATES "I FEEL FINE ACTUALLY ALOT BETTER THAN YESTERDAY". AMIODARONE CONTINUES AT 1MG WITH NS AT 100CC/HOUR PT HAS CALL LIGHT BED LOW POSITION. REMINDED PATIENT AGAIN TO USE CALL LIGHT WITH ANY PAIN,DISCOMFORT OR NEEDS HE VERBALIZES GOOD UNDERSTANDING
--- NOTE | 2018-07-03 23:08 | NUR ---
SPOKE WITH AMEYA CHARGE NURSE INFORMED HAVE PAGED DR CONNELLY COUPLE TIMES WITH NO REPLY.SHE CALLED THE CARDIOLOGY CALL SERVICE SAME NUMBER [phone] AND INFORMED WE HAVE PAGED TWICE NO REPLY AND WE STILL NEEDED TO SPEAK WITH DR CONNELLY.
--- NOTE | 2018-07-03 23:12 | NUR ---
DR CONNELLY RETURNED PAGE STATED HE HAD NOT GOTTEN THE FIRST PAGES AND THAT CALL SERVICE CALLED PERSONAL NUMBER. HE ASKED IF WE HAD PAGED THROUGH THE SERVICE I STATED YES THEN ASKED HIM IF WE NEEDED TO GET IN TOUCH WITH HIM AGAIN HOW DID HE WANT US TO REACH HIM? HE STATED KEEP PAGING THE SERVICE. INFORMED HIM OF PT STILL BEING UNCONTROLLED A FIB 160'S AFTER LOPRESSOR IV 5 MG AND PTS SCHEDULED PO DOSE OF NORVASC WELL AMIODARONE STILL INFUSING CONTINUOUSLY 1MG/MIN. PTS B/P STABLE PT DENIES CP OR DISCOMFORT HE STATED IF WE STARTED CARDIZEM GTT HE WAS WORRIED WE WOULD DROP PT WITH HIS CURRENT HEART DISEASE. HE STATED WE JUST NEED TO GIVE THE AMIODARONE TIME TO WORK SINCE PT WAS STABLE OTHERWISE. I STATED OK AND FOR CLARIFICATION IF PT IS STILL RUNNING IN 160'S IN 2 HOURS OR 4 HOURS DO YOU WANT ME TO CALL YOU AGAIN. HE STATED IF PT OTHERWISE STABLE B/P AND NO DISTRESS OR CHANGES...NO NEED TO NOTIFY.BUT NOT TO HESITATE WITH ANY CHANGES OR ISSUES. HE WOULD BE IN EARLY IN AM.
[2018-07-04] VITALS (37 sets, daily range): BP systolic 103–140; BP diastolic 60–104
--- NOTE | 2018-07-04 01:00 | NUR ---
ANSWERED PTS CALL LIGHT HE HAD LOST HIS CELL PHONE IN BED COVERS FOUND AND GIVEN TO PT HE ASKED ME TO HELP HIM TURN IT OFF SO HE COULD REST. TURNED PHONE OFF AND PT PLACED ON BEDSIDE TABLE WITHIN REACH
--- NOTE | 2018-07-04 03:00 | NUR ---
REASSESSMENT MADE PT HAS NOT SLEPT TONIGHT WILL PASS ON IN REPORT RATE STILL UNCONTROLLED BUT DOWN TO 150'S. SEE FLOWSHEET CPOC PT DENIES CP OR SOB
[2018-07-04 03:04] LABS: BASOPHILS 0.1 % (0-2); EOSINOPHILS 0 % (0-7); HEMATOCRIT 37.9 % (42.0-54.0); HEMOGLOBIN 13.4 g/dL (13.5-17.5); IMMATURE GRANULOCYTES 0.4 % (0-5); LYMPHOCYTES 13.7 % (15-50); MCH 31.8 pg (26.0-34.0); MCHC 35.4 g/dL (31.0-37.0); MEAN PLATELET VOLUME 11.8 fL (7.4-10.4); MONOCYTES 16.2 % (2-11); NEUTROPHILS 69.6 % (40-80); RBC 4.21 10x6/uL (4.20-6.10); RDW 13.6 % (11.5-14.5)
[2018-07-04 03:07] LABS: PLATELET COUNT 199 10x3/uL (130-400); WBC 16.4 10x3/uL (4.8-10.8)
[2018-07-04 03:17] LABS: ANION GAP 14.6 mmol/L (8-16); CARBON DIOXIDE 20.8 mmol/L (21.0-32.0); CREATININE - SERUM 1.1 mg/dL (0.6-1.3); POTASSIUM - SERUM 3.4 mmol/L (3.5-5.1)
--- NOTE | 2018-07-04 07:00 | NUR ---
PTS IV PUMP BEEPING INTO ROOM HE IS HOLDING THE PIV CATH UP HE HAD ACCIDENTLY PULLED OUT. RESTARTED PIV ONE ATTEMPT TO RIGHT FOREARM 20 GUAGE PLACED TAPED SECURED AND COVERED WITH TEGADERM LARGE TO TRY TO KEEP PT FROM PICKING OR PULLING.
--- NOTE | 2018-07-04 07:00 | NUR ---
SHIFT ASSESSMENT COMPLETED. PT CARE ASSUMED, MONITORS ON AND WORKING, VITALS STABLE. PT AWAKE AND ALERT, AMIO INFUSING, CALL LIGHT WITHIN REACH, WILL CONTINUE TO OBSERVE.
--- NOTE | 2018-07-04 09:00 | NUR ---
PT SITTING UP ON SIDE OF THE BED EATING BREAKFAST, FAMILY AT BEDSIDE, UPDATE PROVIDED. MONITORS ON AND WORKING, PT AWAKE AND ALERT, HEART RATE CONTINUES TO BY SINUS TACHY, AWARE, CALL LIGHT WITHIN REACH, WILL CONTINUE TO OBSERVE.
--- NOTE | 2018-07-04 10:45 | NUR ---
DR CONNELLY AT BEDSIDE, SPOKE WITH FAMILY AND PT, WILL START CARDIZEM DRIP AT A CONTINOUS RATE OF 5ML/HR, MONITORS ON AND WORKING, CALL LIGHT WITHIN REACH.
--- NOTE | 2018-07-04 11:00 | NUR ---
PT AWAKE AND ALERT, MONITORS ON AND WORKING, CALL LIGHT WITHIN REACH, WILL CONTINUE TO OBSERVE. SEE FLOW SHEET FOR FURTHER DETAILS.
--- NOTE | 2018-07-04 13:00 | NUR ---
PT SITTING UP IN BED, AWAKE AND ALERT, FAMILY AT BEDSIDE, UPDATE PROVIDED. MONITORS ON AND WORKING, CALL LIGHT WITHIN REACH, WILL CONTINUE TO OBSERVE.
--- NOTE | 2018-07-04 14:35 | NUR ---
CARDIZEM INCREASED TO 15MG/HR PER MD ORDERS. PT CONTINUES TO BY TACHYCARDIAC, PT AWAKE AND ALERT, CALL LIGHT WITHIN REACH, WILL CONTINUE TO OBSERVE.
--- NOTE | 2018-07-04 15:36 | NUR ---
CARDIZEM 10MG BOLUS GIVEN ONE TIME PER MD. MONITORS ON AND WORKING, VITALS STABLE, NO SIGNS/SYMPTOMS OF PAIN OR DISCOMFORT NOTED AT THIS TIME, WILL CONTINUE TO OBSERVE.
--- NOTE | 2018-07-04 17:00 | NUR ---
PT HEART RATE REMAINS IN THE 150'S. PAGED. PT AWAKE AND ALERT, FAMILY AT BEDSIDE, UPDATE PROVIDED. MONITORS ON AND WORKING, CALL LIGHT WITHIN REACH, WILL CONTINUE TO OBSERVE.
--- NOTE | 2018-07-04 19:00 | NUR ---
REPORT RECEIVED.INITIAL ASSESSMENT COMPLETE. PT ALERT AND ORIENTED DENIES PAIN OR SOB AT THIS TIME. AMIODARONE GTT STILL INFUSING PER DR ORDER AT 1MG/MIN CARDIZEM GTT INFUSING AT 15 MG/HOUR STILL IN UNCONTROLLED A.FIB MINIMAL DECREASE TO 140-150'S. SET UP MECHANIC AUTOMATIC LINE ALARMS ON AND AUDIBLE. DENIES CP OR SOB NONLABORED O2 PER NC AT 3LPM WITH O2 SAT READING 97%. ABD SOFT NONTENDER BOWEL SOUNDS ACTIVE. PT FREQUENTLY INCONTINENT OF URINE SECONDARY TO URGENCY AND FREQUENCY. SKIN WARM DRY AND INTACT. BED IN IN LOW POSITION CALL LIGHT IN REACH. INSTRUCTED PT TO USE CALL LIGHT FOR ASSISTANCE AND RISKS INVOLVED WITH TRYING TO GET UP UNASSISTED PT VERBALIZES UNDERSTANDING.
--- NOTE | 2018-07-04 19:30 | NUR ---
INTO CHECK ON PT WHEN BED ALARM SOUNDED HE WAS SITTING ON SIDE OF BED WITH GOWN AND BED LINENS WET WITH URINE. IN DEPTH DISCUSSION AGAIN ON NEEDING TO CALL FOR ASSISTANCE. HE STATED "WELL BY THE TIME I REALIZED I HAD TO GO IT WAS TOO LATE AND NOW EVERYTHINGS WET." SO AGAIN INSTRUCTED PT TO HAVE URINAL IN PLACE AND DEMONSTRATED POSITIONING SO ITS ALREADY IN PLACE TO KEEP FROM INCONTINENCE ACCIDENTS. PT VERBALIZES UNDERSTANDING IS COHERENT JUST STATES HE HAS ALWAYS HAD PROBLEM WITH HAVING TO GO STATED "IF IM DRIVING AND PULL IN GAS STATION SOMETIMES I JUST HAVE TO PEE OUTSIDE TRUCK CANT MAKE IT IN THE STORE"
--- NOTE | 2018-07-04 23:00 | NUR ---
REASSESSMENT MADE SEE FLOWSHEET. PT NOT ATTEMPTING TO GET UP BUT STILL FREQUENCY AND URGENCY SEE ADL FLOWSHEET PT ABLE TO REPOSITION SELF BATHE CLEAN PERINEAL AREA AND REDRESS. WILL AGAIN REPORT TO DAY SHIFT DUE TO HEART RATE MISSED REPORTING. THIS IS NOT NEW PROBLEM. PT DID HAVE CATHETER BUT PULLED OUT COUPLE DAYS AGO WITH NO REPLACE ORDER..
[2018-07-05] VITALS (23 sets, daily range): BP systolic 82–146; BP diastolic 55–111
--- NOTE | 2018-07-05 01:00 | NUR ---
PT RESTING WELL AFTER XANAX 1MG GIVEN AT HS. PT DID NOT SLEEP AT ALL LAST NIGHT. HE STATED HE TAKES XANAX AT HOME AT BEDTIME FOR SLEEP HEART RATE DECREASING SLOWLY HAVE ACTUALLY SEEN 120'S OCCASIONALLY NO CHANGE IN DRIPS.
--- NOTE | 2018-07-05 03:00 | NUR ---
REASSESSMENT MADE SEE FLOWSHEET. NO CHANGES IN DRIPS. BED LOW POSITION CALL LIGHT IN REACH. DENIES CHEST PAIN SOB OR DISTRESS.
[2018-07-05 03:18] LABS: HEMATOCRIT 32.7 % (42.0-54.0); HEMOGLOBIN 11.6 g/dL (13.5-17.5); MCH 31.7 pg (26.0-34.0); MCHC 35.5 g/dL (31.0-37.0); MCV 89.3 fL (80.0-100.0); MEAN PLATELET VOLUME 11.5 fL (7.4-10.4); PLATELET COUNT 164 10x3/uL (130-400); RBC 3.66 10x6/uL (4.20-6.10); RDW 13.6 % (11.5-14.5)
[2018-07-05 03:23] LABS: CALCIUM 7.9 mg/dL (8.5-10.1); CHLORIDE - SERUM 107 mmol/L (98-107); GLUCOSE 102 mg/dL (74-106); POTASSIUM - SERUM 3.1 mmol/L (3.5-5.1); SODIUM 139 mmol/L (136-145)
[2018-07-05 03:24] LABS: CALC OSMOLALITY 281 mosm/kg (275-300); CREATININE - SERUM 0.8 mg/dL (0.6-1.3); UREA NITROGEN 23 mg/dL (7-18); eGFR NON AFRICAN AMERICAN > 90 mL/min (90-120)
[2018-07-05 03:29] LABS: EOSINOPHILS 2 % (0-7); LYMPHOCYTES 14 % (15-50); MONOCYTES 13 % (2-11); NEUTROPHILS 70 % (40-80); PLATELET ESTIMATE NORMAL
--- NOTE | 2018-07-05 05:00 | NUR ---
POTASSIUM LAB RESULT 3.1 REPLACEMENT GIVEN PER ORDERS AND POTASSIUM LAB ORDER PLACED FOR 1000
--- NOTE | 2018-07-05 07:00 | NUR ---
AWAKE EASILY TO VERBAL SITMULI SKIN WARM AND DRY. IV RIGHT FOREARM WITHOUT REDNESS OR SWELLING INFUSING WITH CORDARONE AT 1 MG MIN AND CARDIZEM AT 15 MG HOUR. NS AT 100 ML HOUR. NO DISTRESS. OXYGEN AT 3 LITERA MIN. BREAKFAST SERVED.
--- NOTE | 2018-07-05 09:00 | NUR ---
ATE ALL OF HIS BREAKFAST. DR. CONNELLY HERE. STATES HE IS NOT GOING TO DO ANYTHING ABOUT RATE OR RHYTHM RIGHT NOW, WILL CARDIO VERT IN CATH TOMORROW. PATIENT VOIDING IN URINAL. NO DISTRESS TALKATIVE AND FRIENDLY UPSET DOES NOT WANT ANYONE IN HIS BUSINESS. FAMILY HERE UPDATE GIVEN
--- NOTE | 2018-07-05 11:00 | NUR ---
LLOYD GUARDADO SERVED. FAMILY HERE. STILL VOIDING IN URINAL. NO DISTRESS. NO CHANGE IN RHYTHM OR IV GTTS. TAKING PO FLUIDS WELL
--- NOTE | 2018-07-05 13:00 | NUR ---
FAMILY DISCUSS HEART CATH WITH PATIENT AND FAMILY TOMORROW AND PACEMAKER WITH DEFIBULATOR. VERBALIZED UNDERSTANDING. PATIENT REQUIRED MORE EXPLAINING FOR HIM TO UNDERSTAND.NO DISTRESS TAKING PO FLUIDS WELL.
--- NOTE | 2018-07-05 15:00 | NUR ---
LINEN CHANGE SOAKING WET WITH URINE. PATIENT HAS USED URINAL 7 X TODAY. STILL SPILLING URINAL. FRIENDLY AND COOPERATIVE. TURNS SELF FROM SIDE TO SIDE. NO DISTRESS. NEEDS REORIENTATION TO PROCEDURES AND WHY HE IS HERE. COOPERATIVE
--- NOTE | 2018-07-05 17:55 | NUR ---
AWAKE AND TALKATIVE VERY FRIENDLY. ALERT BUT CONFUSED TO CERTAIN SITUATION. NEEDS TO HAVE REPEATED INSTURCTIONS. SKIN WARM AND DRY. IV RIGHT FOREARM WITHOUT REDNESS OR SWELLING. VOIDED IN URINAL CLEAR CLAU. MONITOR UNCONTROLLED ATRIAL FIB RATE 135-140. DENIES CHEST PAIN OR SHORTNESS OF BREATH. CORADRON GTT AT 1 MG MIN. CARDIZEM AT 15 MG HOUR. TURNS SELF FROM SIDE TO SIDE.
--- NOTE | 2018-07-05 19:00 | NUR ---
REPORT RECEIVED. RECEIVED PATIENT IN BED. AWAKE AND ALERT. ORIENTED TO PERSON PLACE AND TIME WITH SOME CONFUSION TO SITUATION. SPEECH CLEAR. DENIES CHEST PAIN, SOB OR DYSPNEA.SHIFT ASSESSMENT COMPLETED PER FLOW SHEET WITH NO ACUTE DISTRESS OBSERVED. MONITORS CONNECTED TO PATIENT WITH ALARMS SET. VSS. CALL LIGHT IN REACH. IV TUBING/ FLUIDS DATED/LABELED AND CURRENT.
--- NOTE | 2018-07-05 20:30 | NUR ---
PATIENT COMPLAINS OF PAIN AT IV SITE. IV SITE RFA RED AND EDEMATOUS. IV REMOVED WITH CATH INTACT. 20 GAUGE IV STARTED IN LEFT HAND X 1 ATTEMPT. ARLYN WITHOUT DIFF.
--- NOTE | 2018-07-05 21:00 | NUR ---
AWAKE AND ALERT. DENIES PAIN. VSS. NO ACUTE DISTRESS OBSERVED
--- NOTE | 2018-07-05 23:00 | NUR ---
RESTING WITH EYES CLOSED. ROUSED EASILY TO VERBAL STIMULI. CONFUSED TO PLACE, DATE AND SITUATION. LARGE INCONT URINE OBSERVED. LINENS CHANGED/SAMY CARE GIVEN. REASSESSMENT COMPLETED PER FLOW SHEET WITH NO ACUTE DISTRESS OBSERVED. VSS
[2018-07-06] VITALS (18 sets, daily range): BP systolic 110–152; BP diastolic 56–125
[2018-07-06 02:59] LABS: BASOPHILS 0.1 % (0-2); EOSINOPHILS 0 % (0-7); HEMOGLOBIN 10.8 g/dL (13.5-17.5); IMMATURE GRANULOCYTES 1.2 % (0-5); MCHC 34.8 g/dL (31.0-37.0); MCV 89.1 fL (80.0-100.0); MEAN PLATELET VOLUME 11.3 fL (7.4-10.4); MONOCYTES 16.3 % (2-11); NEUTROPHILS 66.4 % (40-80); PLATELET COUNT 170 10x3/uL (130-400); RBC 3.48 10x6/uL (4.20-6.10); WBC 11.9 10x3/uL (4.8-10.8)
--- NOTE | 2018-07-06 03:00 | NUR ---
AWAKE AND ALERT. REASSESSMENT COMPLETED PER FLOW SHEET WITH NO CHANGES OR ACUTE DISTRESS OBSERVED. VSS. CALL LIGHT IN REACH
[2018-07-06 03:14] LABS: CALC OSMOLALITY 279 mosm/kg (275-300); CALCIUM 7.6 mg/dL (8.5-10.1); CARBON DIOXIDE 20.4 mmol/L (21.0-32.0); CHLORIDE - SERUM 107 mmol/L (98-107); CREATININE - SERUM 0.9 mg/dL (0.6-1.3); GLUCOSE 106 mg/dL (74-106); POTASSIUM - SERUM 3.4 mmol/L (3.5-5.1); SODIUM 139 mmol/L (136-145); UREA NITROGEN 18 mg/dL (7-18); eGFR NON AFRICAN AMERICAN 88 mL/min (90-120)
--- NOTE | 2018-07-06 05:01 | NUR ---
RESTING WITH EYES CLOSED. EASILY ROUSED AND ALERT. VSS. NO ACUTE DISTRESS OBSERVED.
--- NOTE | 2018-07-06 07:00 | NUR ---
PT RESTING IN BED C CALL ALATORRE IN REACH. CONTROLLED A-FIB--CARDIZEM DRIP AT 5ML/HR. AMIODARONE DRIP STOPPED. VSS. WILL CONTINUE TO MONITOR
--- NOTE | 2018-07-06 08:31 | NUR ---
Nutrition follow-up: Diet: Regular; pt NPO for procedures today PO intake 75-100% of meals Labs reviewed Wt: 171# - stable from admit +BM RDN following.
--- NOTE | 2018-07-06 09:30 | NUR ---
OBTAINED CONSENT FOR HEART CATH TODAY FROM DAUGHTER WELL BLOOD CONSENTS. PT IN BED C STABLE VS.
--- NOTE | 2018-07-06 11:00 | NUR ---
PT RESTING IN BED AWAKE AND ALERT. NRS. WILL CONTINUE TO MONITOR
--- NOTE | 2018-07-06 13:00 | NUR ---
PT RESTING IN BED C CALL ALATORRE IN REACH. VSS. NORMAL SINUS RHYTHM. WILL CONTINUE TO MONITOR
--- NOTE | 2018-07-06 14:35 | NUR ---
CHANGED ALL PT LINENS AND PULLED UP IN BED. [id number] FOR HEART CATH. NOTIFIED FAMILY
--- NOTE | 2018-07-06 15:00 | NUR ---
PT TAKEN TO LEGAL OFFICER AT THIS TIME
--- NOTE | 2018-07-06 16:00 | NUR ---
PT RETURNED FROM ASSOCIATE DIRECTOR OF DEVELOPMENT AT THIS TIME WITH REPORT OF NO STENTS NEEDED. RIGHT GROIN EXOSEAL INTACT. INSTRUCTED PT TO REMAIN SUPINE FOR 2 HOURS.
--- NOTE | 2018-07-06 17:20 | NUR ---
PT HAD INCONTINENT VOID. NURSES CLEANED AND CHANGED
--- NOTE | 2018-07-06 18:10 | NUR ---
RECEIVED PT FROM ICU VIA BED. PT IS AAO AND CURRENTLY LYING SUPINE FROM INFORMATION TECHNOLOGY SECURITY MANAGER TODAY. SITE IS C/D/I. AMIODORONE INFUSING @5ML/HR, CARDIZEM INFUSING @5ML/HR AND NS INFUSING @100ML/HR VIA L.HAND PIV. RR EVEN AND UNLABORED ON RA. PT DENIES ANY NEEDS AT THIS TIME. WILL CTM.
--- NOTE | 2018-07-06 18:39 | NUR ---
TELEMETRY PLACED ON PT. PT CURRENTLY RUNNING 67 NS. WILL CTM.
--- NOTE | 2018-07-06 19:15 | NUR ---
ASLEEP AT THIS TIME RESP EVEN AND UNLABIOREDSKIN WARM AND DRYIV TO LEFT HAND IS PATENT BED IS LOKED AND LOW SR X2
--- NOTE | 2018-07-06 20:02 | NUR ---
PT UP ON SIDE OF BED STRIPPING AND URINATING IN FLOOOR PT BECAME IRATE AT THIS TIME...HELP CAME AND PT CLEANED O2 APPLIED AND CALM NOW
[2018-07-07] VITALS: BP 144/80
[2018-07-07 04:00] VITALS: BP 145/78
--- NOTE | 2018-07-07 05:02 | NUR ---
I have reviewed this patient and I concur with the Shift Assessment completed by the Licensed Practical Nurse today this shift.
[2018-07-07 06:22] LABS: CALCIUM 8.1 mg/dL (8.5-10.1); CARBON DIOXIDE 20.8 mmol/L (21.0-32.0); CHLORIDE - SERUM 104 mmol/L (98-107); CREATININE - SERUM 0.7 mg/dL (0.6-1.3); GLUCOSE 88 mg/dL (74-106); SODIUM 136 mmol/L (136-145); eGFR NON AFRICAN AMERICAN > 90 mL/min (90-120)
[2018-07-07 06:23] LABS: CALC OSMOLALITY 269 mosm/kg (275-300); POTASSIUM - SERUM 3.1 mmol/L (3.5-5.1); UREA NITROGEN 10 mg/dL (7-18)
[2018-07-07 06:30] LABS: BASOPHILS 0 % (0-2); EOSINOPHILS 0.5 % (0-7); HEMATOCRIT 31.5 % (42.0-54.0); LYMPHOCYTES 13.4 % (15-50); MCH 31.3 pg (26.0-34.0); MCHC 34.9 g/dL (31.0-37.0); MCV 89.5 fL (80.0-100.0); MEAN PLATELET VOLUME 11.4 fL (7.4-10.4); MONOCYTES 13.6 % (2-11); NEUTROPHILS 71.5 % (40-80); PLATELET COUNT 195 10x3/uL (130-400); RBC 3.52 10x6/uL (4.20-6.10); RDW 14.2 % (11.5-14.5); WBC 13.8 10x3/uL (4.8-10.8)
[2018-07-07 08:35] VITALS: BP 140/74
--- NOTE | 2018-07-07 12:26 | CN ---
PATIENT NAME:JOSE E CARROLL MEDICAL RECORD: [id number] : 41 LOCATION:D.[place] D.2110 ADMIT DATE: 07/02/18 ACCOUNT: [id number] CONSULTING PHYSICIAN: HELEN CAI MD REFERRING PHYSICIAN: ISSAC ANNA MD DATE OF CONSULTATION: 07/02/2018 HISTORY OF PRESENT ILLNESS: A 52-year-old gentleman known to me with a history of coronary artery disease. He had acute myocardial infarction back in December. Subsequently, did not take his Plavix, had acute stent thrombosis. Apparently, he has not been feeling well for the past week to 10 days with intermittent chest pain, does have underlying EF 20% to 25% at that time. He was found to be in wide complex tachycardia. We are asked to see him concerning cardiovascular status. PAST MEDICAL HISTORY: Includes: 1. History of hypertension. 2. Coronary artery disease as described above. 3. Hyperlipidemia. 4. Hypothyroidism. MEDICATIONS: Typically include Synthroid 100 mcg every day, Paxil 20 every day, aspirin 81 every day, pravastatin 40 every day, enalapril 20 every day, sotalol 80 b.i.d., Plavix 75 every day. SOCIAL HISTORY: Smokes about a pack a day from previous reports. No exercise program. Reports social drinking, although with current agitation, etc., I suspect this may be more than a little. ALLERGIES: None known. REVIEW OF SYSTEMS: Unobtainable. PHYSICAL EXAMINATION: GENERAL: Pleasant gentleman, in no acute distress, somewhat disoriented. VITAL SIGNS: Pulse 56 and regular. HEENT: Normocephalic, atraumatic. NECK: No bruits are noted. HEART: Regular. A II/ systolic ejection murmur. LUNGS: Inspiratory and expiratory wheezes, slightly prolonged expiratory phase. ABDOMEN: Soft, nontender. EXTREMITIES: Pulses 2+ with no edema. DIAGNOSTIC DATA: ECG initially shows a VT. IMPRESSION: Acute coronary syndrome, ventricular tachycardia, some of this maybe decreased clearance with sotalol with elevated creatinine, so it appears to be intravascular volume depleted. We will give IV fluids, steroids given physical exam. We will need angiography at some point; however, would prefer to have him unless a more appropriate mental status state before proceeding. TRANSINT:[id number] Voice Confirmation ID: [id number] DOCUMENT ID: [id number] CONSULT REPORT [id number] JOSE E CARROLL,HELEN Morales MD at 1226 CC: [id number] DICTATION DATE: 07/02/18842 SOLE CONDITIONER: 07/02/18 1020 ADM IN [facility] [address] [id number]
--- NOTE | 2018-07-07 12:26 | EC ---
PATIENT:JOSE E CARROLL DATE OF SERVICE: 07/02/18 SEX: M MEDICAL RECORD: [id number] DATE OF : [birth year] LOCATION:D.M2 D.211 AGE OF PATIENT: 72 ADMISSION DATE: 07/02/18 REFERRING PHYSICIAN: INTERPRETING PHYSICIAN: HELEN CAI MD ECHOCARDIOGRAM REPORT ECHO CHARGES 4 ECHO COMPLETE Date: 07/02/18 CLINICAL DIAGNOSIS: V-TACH ECHOCARDIOGRAPHIC MEASUREMENTS (adult normal given) AC root (d.<3.7cm) 3.8 cm LV Septum d (<1.2 cm> 1.7 cm Valve Excursion 1.5 cm LV Septum (systole) 2.2 cm Left Atria (s.<4.0cm> 4.2 cm LVPW d(<1.2cm) 1.6 cm RV (d.<2.3cm) 2.8 cm LVPW (sytole) 2.2 cm LV diastole(<5.6CM) 4.5 cm MV E-F(>70mm/sec) cm LV systole 2.9 cm LVOT Diameter 1.8 cm MV exc.(>10mm) cm Est.ejection fraction (50-75%) % DOPPLER: LVIT cm/sec A 39.0 cm/sec E 53.0 cm/sec LA cm/sec RVSP 21.0 mmHg LVOT 83.0 cm/sec AOP1/2T m/s Asc. Ao 130 cm/sec RVOT 48.0 cm/sec RA cm/sec PA 87.0 cm/sec AV Gradient Peak 6.8 mmHg AV Mean 3.6 mmHg AV Area 1.7 cm MV Gradient Peak 1.6 mmHg MV Mean 0.63 mmHg MV Area cm COMMENTS: Deckhand Shrimp Boat: Ariel ANGUIANOOE Live Ammunition Inspector: 3 Dr. Butterfield TAPE# PACS Pericardial Effusion N DATE OF SERVICE: Adequate 2D, color flow, spectral Doppler, and M-Mode. LVH is present. LV internal dimension is normal. LV is globally hypokinetic with marked anterior hypokinesis. Overall LV function is reduced at 20% to 25%. Aortic valve sclerosis without evidence of stenosis on Doppler interrogation. Left atrium mildly dilated at 4.2 cm. Mitral valve shows no prolapse. Mild MR. Right-sided chambers size grossly normal. Trace TR. TRANSINT:[id number] Voice Confirmation ID: [id number] DOCUMENT ID: [id number] ECHOCARDIOGRAM REPORT [id number] JOSE E CARROLL,HELEN Morales MD at 1226 CC: [id number] DICTATION DATE: 07/02/18 1259 DINING ROOM HOST/HOSTESS: 07/02/18 1317 ADM IN [facility] [address] [place] [address]
--- NOTE | 2018-07-07 12:26 | OP ---
PATIENT NAME: JOSE E CARROLL MEDICAL RECORD: [id number] :41 LOCATION:D.M2 D.0 ADMISSION DATE:07/02/18 SURGEON: HELEN CAI MD DATE OF OPERATION: 07/06/2018 PROCEDURE: Left heart catheterization, selective coronary angiography, right femoral artery approach. CATHETERS: A 5-Tajik sheath, 5/4 left and right Emily. Please note, we had to exchange for a long sheath at the end of procedure. FINDINGS: Left ventriculography in 30-degree HLAL view shows global hypokinesis. EF 25% to 30%. CORONARY ANATOMY: LEFT MAIN: Left main is free of disease. LAD: Fills for a short period of time and is totally occluded. CIRCUMFLEX: Area of previous stenting is widely patent. RIGHT CORONARY ARTERY: Totally occluded in its midportion. Fills via iagc-sx-sqyis collaterals. MIRZA to LAD is widely patent. IMPRESSION: Ischemic cardiomyopathy. No ischemic area at this point, admitted with ventricular tachycardia. The patient meets criteria for primary prevention. QRS duration is not enough in duration to warrant a 3-lead ICD. I will plan for simple single-chamber ICD in the near future. TRANSINT:[id number] Voice Confirmation ID: [id number] DOCUMENT ID: [id number] HELEN CAI MD at 1226 CC: [id number] DICTATION DATE: 07/06/18 1610 MAINTENANCE INSPECTOR: 07/06/18 1838 ADM IN [facility] [id number] [place] [address]
--- NOTE | 2018-07-07 14:16 | NUR ---
ALERT AND ORIENTED X4. RESTING IN BED. LINEN CHANGE COMPLETE. REFUSE BATH. PATIENT STATES, "I JUST WANT THIS PROCEDURE TO BE DONE. THEY KEEP DOING EVERYONE ELSE BUT ME. I WILL SHOWER IF I LIVE THROUGH THIS. IF I DON'T GOD WON'T CARE. NO GET OUT AND LEAVE ME ALONE."
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
[2018-07-07 15:59] VITALS: BP 148/96
--- NOTE | 2018-07-07 17:00 | NUR ---
ALERT AND ORIENTED X4. SITTING UP IN BED. LT HAND IV INFILTRATED. DC LT HAND IV TIP INTACT. REFUSE IV RESITE. ASK 2 OTHER NURSES TO TRY. PATIENT THEN SAYS, "IF YOU BRING A NEEDLE IN HERE EXPECT TO GET HIT OVER THE HEAD." EXPLAIN THE NEED FOR CARDIZEM DRIP. PATIENT STILL REFUSES.
[2018-07-07 20:00] VITALS: BP 150/79
--- NOTE | 2018-07-07 21:56 | NUR ---
OT NOTE: PT COMPLETED BED MOB TASKS AND EOB SITTING BALANCE WITH CGA/MIN A. PT REQUIRED CUES FOR TASK COMPLETION. PT COMPLETED SIMPLE HAIR GROOMING AND FACE WASHING AT EOB WITH MIN A FOR BALANCE. THANK YOU, TESSA ALONSO
--- NOTE | 2018-07-07 22:00 | NUR ---
IV PLACED LFT FA BY SAHIL JEWELL..
[2018-07-08] VITALS: BP 152/76
--- NOTE | 2018-07-08 03:43 | NUR ---
I have reviewed this patient and I concur with the Shift Assessment completed by the Licensed Practical Nurse today this shift.
[2018-07-08 04:00] VITALS: BP 140/74
--- NOTE | 2018-07-08 04:48 | NUR ---
RESUMING CARE PT LAYING IN BED A&O BREATH SOUNDS EVEN UNLABORED NO IV NO C/O PAIN OR DISTRESS CL IN REACH WILL CONT TO MONITOR
[2018-07-08 06:21] LABS: BASOPHILS 0.1 % (0-2); EOSINOPHILS 0.6 % (0-7); HEMOGLOBIN 12.6 g/dL (13.5-17.5); IMMATURE GRANULOCYTES 0.8 % (0-5); LYMPHOCYTES 13.5 % (15-50); MCH 31.9 pg (26.0-34.0); MCV 88.6 fL (80.0-100.0); MEAN PLATELET VOLUME 11.1 fL (7.4-10.4); MONOCYTES 13.7 % (2-11); NEUTROPHILS 71.3 % (40-80); PLATELET COUNT 206 10x3/uL (130-400); RBC 3.95 10x6/uL (4.20-6.10); RDW 13.9 % (11.5-14.5); WBC 14.5 10x3/uL (4.8-10.8)
[2018-07-08 06:38] LABS: ALBUMIN 3.1 g/dL (3.4-5.0); ALKALINE PHOSPHATASE 58 U/L (46-116); ALT (SGPT) 116 U/L (10-68); BILIRUBIN - TOTAL 1.83 mg/dL (0.2-1.3); CALC OSMOLALITY 266 mosm/kg (275-300); CALCIUM 8.8 mg/dL (8.5-10.1); CARBON DIOXIDE 21.7 mmol/L (21.0-32.0); CHLORIDE - SERUM 101 mmol/L (98-107); CREATININE - SERUM 0.8 mg/dL (0.6-1.3); GLUCOSE 91 mg/dL (74-106); PROTEIN - SERUM 7.5 g/dL (6.4-8.2); SODIUM 134 mmol/L (136-145); UREA NITROGEN 10 mg/dL (7-18); eGFR NON AFRICAN AMERICAN > 90 mL/min (90-120)
[2018-07-08 06:43] LABS: POTASSIUM - SERUM 2.9 mmol/L (3.5-5.1)
[2018-07-08 09:06] VITALS: BP 141/66
--- NOTE | 2018-07-08 09:09 | NUR ---
Nutrition follow-up: Pt now NPO for procedure PO intake of a regular diet has been ~73% average x 8 meals Labs reviewed Wt: 148# ? recommend rechecking weight RDN following.
[2018-07-08 12:20] VITALS: BP 130/70
--- NOTE | 2018-07-08 15:00 | NUR ---
ALERT AND ORIENTED X4. SITTING UP IN BED. NOTIFY PROCEDURE CHANGED TO 07/09/18. PATIENT RESPONDS, "WELL DAMN IT. THEY HAVE DONE THIS TO ME FOR 17 DAYS." APOLOGIZE FOR DELAY. DENIES ANY NEEDS AT THIS TIME. CONTINUE PLAN OF CARE AND SAFETY PRECAUTIONS.
--- NOTE | 2018-07-08 15:16 | NUR ---
OT NOTE: PT VERY AGITATED. PT COMPLETED BED MOB WITH SBA. PT COMPLETED ADL MOB WITH CGA/MIN A. PT COMPLETED TOILETING TASK WITH SBA. PT COMPLETED HYGIENE WITH SBA. PT EXHIBITS DECREASED SAFETY AWARENESS. THANK YOU, TESSA ALONSO
[2018-07-08 16:09] VITALS: BP 149/74
--- NOTE | 2018-07-08 19:41 | NUR ---
PT IN BED. COMPLAINS THAT SURGERY IS BEING DELAYED WITH NO EXPLANATION TO WHY. ALSO STATES THAT HE HASNT SEEN A DOCTOR TODAY. DENIES NEEDS AT THIS TIME.
[2018-07-08 20:00] VITALS: BP 133/65
[2018-07-09 00:03] VITALS: BP 126/62
[2018-07-09 04:00] VITALS: BP 129/52
[2018-07-09 05:52] LABS: BASOPHILS 0 % (0-2); EOSINOPHILS 1.1 % (0-7); HEMATOCRIT 33.4 % (42.0-54.0); HEMOGLOBIN 11.9 g/dL (13.5-17.5); IMMATURE GRANULOCYTES 0.6 % (0-5); MCH 31.5 pg (26.0-34.0); MCHC 35.6 g/dL (31.0-37.0); MCV 88.4 fL (80.0-100.0); MEAN PLATELET VOLUME 11.2 fL (7.4-10.4); MONOCYTES 11.6 % (2-11); NEUTROPHILS 74.7 % (40-80); PLATELET COUNT 216 10x3/uL (130-400); RBC 3.78 10x6/uL (4.20-6.10); WBC 12.7 10x3/uL (4.8-10.8)
[2018-07-09 06:13] LABS: ALBUMIN 2.6 g/dL (3.4-5.0); ALKALINE PHOSPHATASE 53 U/L (46-116); ALT (SGPT) 90 U/L (10-68); CALCIUM 8.1 mg/dL (8.5-10.1); CARBON DIOXIDE 21.9 mmol/L (21.0-32.0); CHLORIDE - SERUM 103 mmol/L (98-107); CREATININE - SERUM 0.8 mg/dL (0.6-1.3); GLUCOSE 98 mg/dL (74-106); PROTEIN - SERUM 6.7 g/dL (6.4-8.2); SODIUM 138 mmol/L (136-145); eGFR NON AFRICAN AMERICAN > 90 mL/min (90-120)
[2018-07-09 06:36] LABS: CALC OSMOLALITY 275 mosm/kg (275-300); UREA NITROGEN 13 mg/dL (7-18)
[2018-07-09 06:37] LABS: POTASSIUM - SERUM 2.9 mmol/L (3.5-5.1)
--- NOTE | 2018-07-09 07:21 | NUR ---
PT UP WALKING AROUND IN HALLWAY ALERT AND ORIENTED. RR EVEN AND UNLABORED. NO SOB NOTED. PT DENIES ANY PAIN OR NEDDS AT THIS TIME. BED LOW CALL LIGHT WITHIN REACH. WILL CONTINUE TO MONITOR.
--- NOTE | 2018-07-09 08:05 | NUR ---
PT ALERT AND ORIENTED TO PERSON, PLACE, SITUATION. PT CONFUSED OF TIME. PT DENIES ANY PAIN OR NEEDS AT THIS TIME. PT NPO AFTER BREAKFAST. BED LOW CALL LIGHT WITHIN REACH. WILL CONTINUE TO MONITOR.
[2018-07-09 09:37] VITALS: BP 149/84
[2018-07-09 12:25] VITALS: BP 127/73
--- NOTE | 2018-07-09 12:53 | NUR ---
PT ALERT AND ORIENTED X4. PT WY-OPED. BED LOW CALL LIGHT WITHIN REACH. WILL CONTINUE TO MONITOR.
--- NOTE | 2018-07-09 14:22 | NUR ---
PT RETURNED FROM STOVE CARRIAGE OPERATOR WITH EYES CLOSED RR EVEN WITH EPISODES OF APNEA. PT HAS DRESSING TO LEFT SIDE CHEST C/D/I. PT LEFT ARM IN A SLING. PT VITALS ARE STABLE. DAUGHTER DROPPED OFF EXTRA CLOTHES AND LEFT. BED LOW CALL LIGHT WITHIN REACH. WILL CONTINUE TO MONITOR.
--- NOTE | 2018-07-09 14:36 | NUR ---
I have reviewed this patient and I concur with the Shift Assessment completed by the Licensed Practical Nurse today this shift.
[2018-07-09 16:02] VITALS: BP 117/68
--- NOTE | 2018-07-09 19:05 | NUR ---
PT IN BED. ATTEMPTED TO REPOSITION SLING, BUT PT COMPLAINS THAT IT WAS UNCOMFORTABLE. ATTEMPTED TO EXPLAIN THAT THIS IS THE CORRECT WAY TO WEAR SLING AND PT TOLD ME TO GET OUT OF THE ROOM.
[2018-07-10] VITALS: BP 132/88
[2018-07-10 04:00] VITALS: BP 154/76
[2018-07-10 06:09] LABS: BASOPHILS 0 % (0-2); EOSINOPHILS 0.7 % (0-7); HEMATOCRIT 35.7 % (42.0-54.0); HEMOGLOBIN 12.5 g/dL (13.5-17.5); IMMATURE GRANULOCYTES 0.4 % (0-5); LYMPHOCYTES 14.6 % (15-50); MCH 31.6 pg (26.0-34.0); MEAN PLATELET VOLUME 11.5 fL (7.4-10.4); MONOCYTES 9.7 % (2-11); NEUTROPHILS 74.6 % (40-80); PLATELET COUNT 227 10x3/uL (130-400); RBC 3.95 10x6/uL (4.20-6.10); RDW 14.2 % (11.5-14.5); WBC 13.8 10x3/uL (4.8-10.8)
[2018-07-10 06:12] LABS: MCV 90.4 fL (80.0-100.0)
[2018-07-10 06:31] LABS: ALBUMIN 2.8 g/dL (3.4-5.0); ALKALINE PHOSPHATASE 54 U/L (46-116); ALT (SGPT) 75 U/L (10-68); BILIRUBIN - TOTAL 0.88 mg/dL (0.2-1.3); CALC OSMOLALITY 274 mosm/kg (275-300); CALCIUM 8.7 mg/dL (8.5-10.1); CARBON DIOXIDE 21.5 mmol/L (21.0-32.0); CHLORIDE - SERUM 103 mmol/L (98-107); CREATININE - SERUM 0.8 mg/dL (0.6-1.3); GLUCOSE 86 mg/dL (74-106); POTASSIUM - SERUM 3.6 mmol/L (3.5-5.1); PROTEIN - SERUM 7.3 g/dL (6.4-8.2); SODIUM 137 mmol/L (136-145); UREA NITROGEN 17 mg/dL (7-18); eGFR NON AFRICAN AMERICAN > 90 mL/min (90-120)
[2018-07-10 07:46] VITALS: BP 138/68
--- NOTE | 2018-07-10 09:41 | OP ---
PATIENT NAME: JOSE E CARROLL MEDICAL RECORD: [id number] :41 LOCATION:D.M2 D.2110 ADMISSION DATE:07/02/18 SURGEON: KARINA SANTOS MD DATE OF OPERATION: 07/09/2018 PREOPERATIVE DIAGNOSES: 1. Coronary artery disease. 2. Hypertension. 3. Hyperlipidemia. POSTOPERATIVE DIAGNOSES: 1. Coronary artery disease. 2. Hypertension. 3. Hyperlipidemia. PROCEDURE: Left subclavian vein single lead defibrillator placement. SURGEON: Karina Santos MD CO-SURGEON: Yan Butterfield MD REPORT OF OPERATION: The patient's left chest was prepped and draped in sterile fashion. A 25 mL of 1% lidocaine with epinephrine was infused into the surrounding tissues. A transverse incision was made on the superior lateral aspect of the patient's left upper chest. A subcutaneous pouch was made over the pectoral fascia. A needle was then used to cannulate the left subclavian vein. The wire was eventually placed in the subclavian vein and down in the vena cava. Under fluoroscopic guidance, we could see that the wire was resting in good position. At this point, the dilator trocar device was placed over the wire and the wire and dilator were removed. The lead was advanced through the trocar and at this point, Dr. Butterfield positioned the lead appropriately in the patient's right ventricle. Once it was noted to be positioned appropriately, then this was sutured into place with a 0 Ti-Cron. We then affixed the leads to the defibrillator and placed this in the subcutaneous pouch. The defibrillator was sutured to the pectoral fascia using a single interrupted 0 Ti-Cron. We irrigated out the wound with antibiotic solution and then closed the subcutaneous tissues with interrupted 3-0 Vicryl. The skin was closed with running subcutaneous 5-0 Monocryl and dressed appropriately. COMPLICATIONS: None. CONDITION: Stable. ANESTHESIA: Local MAC. BLOOD LOSS: Minimal. TRANSINT:[id number] Voice Confirmation ID: [id number] DOCUMENT ID: [id number] OPERATIVE REPORT [id number] JOSE E CARROLL KARINA SANTOS MD at 0941 CC: [id number] DICTATION DATE: 07/09/18 135 GREENSKEEPER SUPERVISOR: 07/09/18 1527 ADM IN [facility] [address] [place] [address]
--- NOTE | 2018-07-10 09:50 | NUR ---
PT LAYING ON SIDE IN BED ALERT AND ORIENTED. RR EVEN AND UNLABORED. PT VITALS STABLE. ASSISTED PT TO PUT ON CLOTHES. PT HAS NO COMPLAINTS OF PAIN OR NEEDS At THIS TIME. BED LOW CALL LIGHT WITHIN REACH. WILL CONTINUE TO MONITOR.
[2018-07-10 11:33] VITALS: BP 121/75
[2018-07-10] MEDS ORDERED: NORVASC5 MG PO (12:31)
[2018-07-10] MEDS ORDERED: ALDACTONE25 MG PO (12:31)
[2018-07-10] MEDS ORDERED: COREG 3.1253.125 MG PO (12:31)
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
--- NOTE | 2018-07-10 14:18 | NUR ---
PT DC'D HOME. 22G IV DC'D WITH CATHETER TIP IN PLACE. PT VITALS STABLE DISCHARGE INSTRUCTIONS GIVEN. PT VITALS STABLE. DENIES ANY PAIN OR NEEDS AT A TIME.
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
--- NOTE | 2018-07-13 10:07 | OP ---
PATIENT NAME: JOSE E CARROLL MEDICAL RECORD: [id number] :41 LOCATION:D.M2 D.0 ADMISSION DATE:07/02/18 SURGEON: HELEN CAI MD DATE OF OPERATION: 07/09/2018 PROCEDURE: Lead portion of ICD placement. INDICATION: The patient admitted with ventricular tachycardia, sustained, requiring cardioversion, known cardiomyopathy. DESCRIPTION OF PROCEDURE: After the left subclavian was cannulated via modified Seldinger technique via Dr. Silva, the ICD was placed in the RV apex without difficulty. After adequate thresholds and R waves were obtained, the lead was attached to the ICD generator and the pocket was closed via Dr. Silva. IMPRESSION: Successful ICD placement. ESTIMATED BLOOD LOSS: Minimal. DISPOSITION: To the floor, stable. COMPLICATIONS: None. TRANSINT:[id number] Voice Confirmation ID: [id number] DOCUMENT ID: [id number] HELEN CAI MD at 1007 CC: [id number] DICTATION DATE: 07/09/18 1349 YOUTH CARE WORKER: 07/09/18 1525 DIS IN 07/10/18 [facility] [address] [place] [address]
== END 2018-07-10 14:19 | disposition home health service (06) | DRG 224 ==
LOC: D.ER 01:08 → D.ICU 03:18 → D.M2 07-06 17:40
PROVIDERS: Emergency Medicine; Family Medicine; ADMIT Internal Medicine Nephrology; ATTEND Internal Medicine Nephrology
PROC: B2111ZZ Fluoroscopy of Multiple Coronary Arteries using Low Osmolar Contrast (ICD-10-PCS; 2018-07-06)
PROC: B2151ZZ Fluoroscopy of Left Heart using Low Osmolar Contrast (ICD-10-PCS; 2018-07-06)
PROC: 4A023N7 Measurement of Cardiac Sampling and Pressure, Left Heart, Percutaneous Approach (ICD-10-PCS; 2018-07-06)
PROC: 0JH608Z Insertion of Defibrillator Generator into Chest Subcutaneous Tissue and Fascia, Open Approach (ICD-10-PCS; principal; 2018-07-07)
PROC: 02HK3KZ Insertion of Defibrillator Lead into Right Ventricle, Percutaneous Approach (ICD-10-PCS; 2018-07-09)
DX: I47.2 Ventricular tachycardia (principal); J96.21 Acute and chronic respiratory failure with hypoxia; I50.23 Acute on chronic systolic (congestive) heart failure; I24.9 Acute ischemic heart disease, unspecified; N17.9 Acute kidney failure, unspecified; F17.203 Nicotine dependence unspecified, with withdrawal; I13.0 Hypertensive heart and chronic kidney disease with heart failure and stage 1 through stage 4 chronic kidney disease, or unspecified chronic kidney disease; E78.5 Hyperlipidemia, unspecified; I25.10 Atherosclerotic heart disease of native coronary artery without angina pectoris; E03.9 Hypothyroidism, unspecified; F32.9 Major depressive disorder, single episode, unspecified; I25.5 Ischemic cardiomyopathy; N18.9 Chronic kidney disease, unspecified; I50.9 Heart failure, unspecified